=== PATIENT | male | born 1940 | race Hispanic/Latino ===

== ENCOUNTER 2017-09-22 06:44 | Day surgery (SDC) | payer MEDICARE ==
[2017-09-21 10:23] LABS: RED BLOOD CELL COUNT(AUTO) 3.83 MIL/uL (4.50-6.20); WHITE BLOOD COUNT (AUTO) 7.7 K/uL (4.8-10.8)
[2017-09-21 10:24] LABS: BASOPHILS % (AUTO) 0.8 % (0.0-5.0); EOSINOPHILS % (AUTO) 4.4 % (0.0-8.0); HEMATOCRIT 34.4 % (42-54); LYMPHOCYTES % (AUTO) 16.7 % (21.0-51.0); MEAN CORPUSCULAR HEMOGLOBIN 30.3 pg (27.0-33.0); MEAN CORPUSCULAR HGB CONC 33.7 g/dL (32.0-36.0); MEAN CORPUSCULAR VOLUME 89.8 fL (79-99); MONOCYTES % (AUTO) 8.6 % (3.0-13.0); NEUTROPHILS % (AUTO) 69.5 % (40.0-77.0); PLATELET COUNT (AUTO) 229 K/uL (130-400); RED CELL DISTRIBUTION WIDTH 13.3 % (11.0-15.5)
[2017-09-21 10:35] LABS: INR 0.95 (0.85-1.15); PARTIAL THROMBOPLASTIN TIME 25.8 SEC (26.3-35.5)
[2017-09-21 10:41] LABS: ALBUMIN 3.2 g/dL (3.5-5.0); BILIRUBIN,TOTAL 0.4 mg/dL (0.2-1.0); CREATININE 2.8 mg/dL (0.5-1.5); POTASSIUM 3.7 mmol/L (3.5-5.1); TOTAL PROTEIN, SERUM 7.5 g/dL (6.0-8.3)
[2017-09-21 10:47] VITALS: BP 114/58
[~2017-09-22] VITALS: Ht 161.3 cm; Wt 83.5 kg
[~2017-09-22 06:44] MED LIST: AMLO5TAB2 PO; HYDR12.54 PO; IRON1CAP32 PO; MIRA25TA PO; OXYB5TAB10 PO; PRAV40TA3 PO; TAMS0.4C32 PO
[2017-09-22 07:30] VITALS: BP 110/64
[2017-09-22] MEDS ORDERED: LIDOCAINE HCL 1% MDV 50ML VIAL ONE (07:47)
[2017-09-22] MEDS ORDERED: ISOVUE-300 100 ML VIAL IV ONE (07:47)
[2017-09-22] MEDS ORDERED: MORPHINE SULFATE 10 MG/ML 1ML SYG ONE (08:41)
[2017-09-22 09:20] VITALS: BP 133/53
[2017-09-22 09:35] VITALS: BP 114/61
[2017-09-22 09:50] VITALS: BP 121/61
[2017-09-22 10:05] VITALS: BP 120/62
[2017-09-22 10:40] VITALS: BP 122/60
[2017-11-24] MEDS ORDERED: LORA10TA7 PO (15:15)
[2017-11-24] MEDS ORDERED: ACET-66 PO (15:15)
[2017-11-24] MEDS ORDERED: FERR325T22 PO (15:15)
[2017-11-24] MEDS ORDERED: MONT10TA24 PO (15:15)
[2018-02-24] MEDS ORDERED: ACET-2743 PO (12:41)
[2018-02-24] MEDS ORDERED: LEVO250T59 PO (12:41)
[2018-02-24] MEDS ORDERED: RENAL CAPS PO (12:41)
== END 2017-09-22 10:50 | disposition home or self-care (01) ==
LOC: DAH 06:44
PROVIDERS: ATTEND Urology
DX: N13.30 Unspecified hydronephrosis (principal); E78.00 Pure hypercholesterolemia, unspecified; Z87.440 Personal history of urinary (tract) infections; Z85.46 Personal history of malignant neoplasm of prostate; Z82.49 Family history of ischemic heart disease and other diseases of the circulatory system
CPT/HCPCS: 36415; 50432; 80053; 85025; 85610; 85730; A4606; C1729 ×2; C1894; J1644; J2270; J3490; Q9967

== ENCOUNTER 2017-10-04 09:49 | Emergency (ER) | payer MEDICARE ==
[2017-10-04 10:16] LABS: BASOPHILS % (AUTO) 0.6 % (0.0-5.0); EOSINOPHILS % (AUTO) 3.3 % (0.0-8.0); HEMATOCRIT 35.3 % (42-54); LYMPHOCYTES % (AUTO) 13.6 % (21.0-51.0); MEAN CORPUSCULAR HEMOGLOBIN 29.8 pg (27.0-33.0); MEAN CORPUSCULAR HGB CONC 33.6 g/dL (32.0-36.0); MEAN CORPUSCULAR VOLUME 88.7 fL (79-99); MONOCYTES % (AUTO) 6.1 % (3.0-13.0); NEUTROPHILS % (AUTO) 76.4 % (40.0-77.0); PLATELET COUNT (AUTO) 368 K/uL (130-400); RED BLOOD CELL COUNT(AUTO) 3.98 MIL/uL (4.50-6.20); WHITE BLOOD COUNT (AUTO) 10.6 K/uL (4.8-10.8)
[2017-10-04 10:24] LABS: CREATININE 2.5 mg/dL (0.5-1.5); POTASSIUM 4.2 mmol/L (3.5-5.1)
[2017-10-04] MEDS ORDERED: SODIUM CHLORIDE 0.9% 1000ML 1,000 ML IV ONE (10:38)
[2017-11-24] MEDS ORDERED: MONT10TA24 PO (15:15)
[2017-11-24] MEDS ORDERED: ACET-66 PO (15:15)
[2017-11-24] MEDS ORDERED: LORA10TA7 PO (15:15)
[2017-11-24] MEDS ORDERED: FERR325T22 PO (15:15)
[2018-02-24] MEDS ORDERED: ACET-2743 PO (12:41)
[2018-02-24] MEDS ORDERED: RENAL CAPS PO (12:41)
[2018-02-24] MEDS ORDERED: LEVO250T59 PO (12:41)
== END 2017-10-04 12:37 | disposition home or self-care (01) ==
LOC: EDH 09:49
DX: N13.9 Obstructive and reflux uropathy, unspecified (principal); E86.0 Dehydration; R05 Cough; I10 Essential (primary) hypertension; Z93.6 Other artificial openings of urinary tract status
CPT/HCPCS: 36415; 76770; 80048; 85025; 96360; 99285; J7030

== ENCOUNTER 2017-10-23 17:39 | Inpatient (IN) | payer MEDICARE ==
[~2017-10-23] VITALS: Ht 152.4 cm; Wt 85.3 kg
[2017-10-23] MEDS ORDERED: ONDANSETRON HCL 4 MG/2 ML VIAL ONE (18:24)
[2017-10-23] MEDS ORDERED: ACETAMINOPHEN 325 MG TAB ONE (18:24)
[2017-10-23] MEDS ORDERED: IPRATROPIUM/ALBUTEROL SULFATE 3 ML SOLUTION IH ONE (18:25)
[2017-10-23 18:43] LABS: CREATININE 3.2 mg/dL (0.5-1.5); POTASSIUM 4.9 mmol/L (3.5-5.1)
[2017-10-23 18:48] LABS: ALBUMIN 2.7 g/dL (3.5-5.0); BILIRUBIN,TOTAL 0.4 mg/dL (0.2-1.0); TOTAL PROTEIN, SERUM 7.4 g/dL (6.0-8.3)
[2017-10-23 18:56] LABS: BASOPHILS % (AUTO) 0.3 % (0.0-5.0); EOSINOPHILS % (AUTO) 0.7 % (0.0-8.0); HEMATOCRIT 28.2 % (42-54); LYMPHOCYTES % (AUTO) 14.1 % (21.0-51.0); MEAN CORPUSCULAR HGB CONC 35.4 g/dL (32.0-36.0); MEAN CORPUSCULAR VOLUME 87.5 fL (79-99); MONOCYTES % (AUTO) 10.6 % (3.0-13.0); NEUTROPHILS % (AUTO) 74.3 % (40.0-77.0); NUCLEATED RED BLOOD CELLS 0.1 % (0.0-0.19); PLATELET COUNT (AUTO) 207 K/uL (130-400); RED BLOOD CELL COUNT(AUTO) 3.22 MIL/uL (4.50-6.20); RED CELL DISTRIBUTION WIDTH 13.5 % (11.0-15.5); WHITE BLOOD COUNT (AUTO) 10.6 K/uL (4.8-10.8)
[2017-10-23 19:12] LABS: BILIRUBIN,URINE Negative (NEGATIVE); COLOR,URINE Yellow (YELLOW); GLUCOSE, URINE (UA) Negative (NEGATIVE); KETONES,URINE Negative (NEGATIVE); LEUKOCYTE ESTERASE ,URINE Large (NEGATIVE); NITRATE,URINE Positive (NEGATIVE); OCCULT BLOOD,URINE Small (NEGATIVE); PH,URINE >=9.0 (5.0-8.0); PROTEIN,URINE Trace (NEGATIVE); UROBILINOGEN,URINE 0.2 mg/dL (0.2-1.0)
[2017-10-23 19:29] LABS: APPEARANCE,URINE SLIGHTLY CLOUDY (CLEAR)
[2017-10-23] MEDS ORDERED: CEFTRIAXONE SODIUM 1 GM ONE (19:40)
[2017-10-23 20:03] LABS: RBC,URINE 0-1 /HPF (0-1)
[2017-10-23 20:04] LABS: BACTERIA,URINE Few /HPF (None Seen)
[2017-10-23 20:05] LABS: SQUAMOUS EPITHELIAL CELL,UR Rare /LPF (0-2)
[2017-10-23 23:45] VITALS: BP 132/68
[2017-10-24] VITALS (7 sets, daily range): BP systolic 119–168; BP diastolic 55–97
[2017-10-24] MEDS ORDERED: SODIUM CHLORIDE 0.9% 1000ML 1,000 ML IV ONE (00:02)
[2017-10-24] MEDS ORDERED: PRAV40TA3 PO (00:33)
[2017-10-24] MEDS ORDERED: TAMS0.4C32 PO (00:33)
[2017-10-24] MEDS ORDERED: BENZ-51 PO (00:33)
[2017-10-24] MEDS ORDERED: AMLO5TAB2 PO (00:33)
[2017-10-24] MEDS ORDERED: MIRA25TA PO (00:33)
[2017-10-24] MEDS ORDERED: ACETAMINOPHEN 325 MG TAB ONE (01:14)
[2017-10-24] MEDS ORDERED: ONDANSETRON HCL 4 MG/2 ML VIAL IVP PRN (04:15)
[2017-10-24] MEDS ORDERED: SODIUM CHLORIDE 0.9% 1000ML 1,000 ML IV SCH (04:15)
[2017-10-24] MEDS ORDERED: LACTULOSE 20 GM/30 ML UDCUP PO PRN (08:45)
[2017-10-24] MEDS ORDERED: MAG HYDROX/AL HYDROX/SIMETH ES 30 ML SUSP UDCUP PO PRN (08:45)
[2017-10-24] MEDS ORDERED: IPRATROPIUM/ALBUTEROL SULFATE 3 ML SOLUTION IH PRN (09:15)
[2017-10-24 09:25] LABS: POTASSIUM 4.8 mmol/L (3.5-5.1)
[2017-10-24] MEDS: PANTOPRAZOLE SODIUM 40 MG TABLET.DR PO SCH (09:49)
[2017-10-24] MEDS: ENOXAPARIN SODIUM 30 MG/0.3 ML SQ SCH (09:51)
[2017-10-24] MEDS: CEFTRIAXONE SODIUM 1 GM IVP SCH ×2 (12:00→21:04)
[2017-10-24] MEDS: ACETAMINOPHEN 325 MG TAB PO PRN (18:04)
[2017-10-24] MEDS ORDERED: CEFTRIAXONE 1GM/D5W 50ML 50 ML IV SCH (21:00)
[2017-10-24] MEDS: TAMSULOSIN HCL 0.4 MG CAP.ER.24H PO SCH (21:04)
[2017-10-24] MEDS: SODIUM CHLORIDE 0.9% 1000ML 1,000 ML IV SCH ×2 (21:05→23:38)
[2017-10-25] VITALS (12 sets, daily range): BP systolic 128–149; BP diastolic 63–75
[2017-10-25 05:58] LABS: HEMATOCRIT 26.8 % (42-54); MEAN CORPUSCULAR HEMOGLOBIN 30.5 pg (27.0-33.0); MEAN CORPUSCULAR HGB CONC 34.2 g/dL (32.0-36.0); PLATELET COUNT (AUTO) 193 K/uL (130-400); RED BLOOD CELL COUNT(AUTO) 3.01 MIL/uL (4.50-6.20); RED CELL DISTRIBUTION WIDTH 13.2 % (11.0-15.5); WHITE BLOOD COUNT (AUTO) 6.1 K/uL (4.8-10.8)
[2017-10-25 06:19] LABS: BAND NEUTROPHILS % (MANUAL) 6 % (0-2); EOSINOPHILS % (MANUAL) 2 % (1-6); LYMPHOCYTES % (MANUAL) 15 % (22-44); MONOCYTES % (MANUAL) 6 % (2-9); SEGMENTED NEUTROPHILS % 71 % (40-70)
[2017-10-25 06:20] LABS: CREATININE 2.8 mg/dL (0.5-1.5); MAGNESIUM 2.1 mg/dL (1.80-2.40); MAN.DIFF COMMENT-IMPRESSION MANUAL DIFFERENTIAL; PHOSPHORUS 3.3 mg/dL (2.5-4.9); PLATELET MORPHOLOGY COMMENT ADEQUATE; POTASSIUM 4.8 mmol/L (3.5-5.1); URIC ACID 5.3 mg/dL (2.6-7.2)
[2017-10-25 06:39] LABS: % IRON SATURATION 14.7 % (30-44)
[2017-10-25 07:48] LABS: INR 1.02 (0.85-1.15); PARTIAL THROMBOPLASTIN TIME 29.4 SEC (26.3-35.5); PROTHROMBIN TIME 10.7 SEC (9.6-11.6)
[2017-10-25] MEDS: ENOXAPARIN SODIUM 30 MG/0.3 ML SQ SCH (09:00)
[2017-10-25] MEDS ORDERED: LIDOCAINE HCL 1% MDV 50ML VIAL ONE (09:22)
[2017-10-25] MEDS ORDERED: ISOVUE-300 100 ML VIAL IV ONE (09:56)
[2017-10-25] MEDS: FOLIC ACID/VITAMIN B COMP W-C 1 MG CAPSULE PO SCH (12:57)
[2017-10-25] MEDS: PANTOPRAZOLE SODIUM 40 MG TABLET.DR PO SCH (12:57)
[2017-10-25] MEDS: TAMSULOSIN HCL 0.4 MG CAP.ER.24H PO SCH (19:55)
[2017-10-25] MEDS: CEFTRIAXONE SODIUM 1 GM IVP SCH (22:27)
[2017-10-25] MEDS: ACETAMINOPHEN 325 MG TAB PO PRN (22:36)
[2017-10-26 03:00] VITALS: BP 134/68
[2017-10-26] MEDS: SODIUM CHLORIDE 0.9% 1000ML 1,000 ML IV SCH (03:38)
[2017-10-26 05:51] LABS: HEMATOCRIT 26.9 % (42-54); MEAN CORPUSCULAR HEMOGLOBIN 30.9 pg (27.0-33.0); MEAN CORPUSCULAR HGB CONC 35.1 g/dL (32.0-36.0); MEAN CORPUSCULAR VOLUME 88.2 fL (79-99); PLATELET COUNT (AUTO) 233 K/uL (130-400); RED BLOOD CELL COUNT(AUTO) 3.05 MIL/uL (4.50-6.20); RED CELL DISTRIBUTION WIDTH 13.5 % (11.0-15.5); WHITE BLOOD COUNT (AUTO) 6.8 K/uL (4.8-10.8)
[2017-10-26 06:09] LABS: CREATININE 2.6 mg/dL (0.5-1.5); POTASSIUM 4.1 mmol/L (3.5-5.1)
[2017-10-26 07:00] VITALS: BP 141/71
[2017-10-26] MEDS ORDERED: IRON SUCROSE COMPLEX 100 MG in SODIUM CHLORIDE 0.9% 50 ML IV SCH (09:00)
[2017-10-26] MEDS ORDERED: BENZ-17 PO (09:21)
[2017-10-26] MEDS ORDERED: CEPH500C2 PO (09:21)
[2017-10-26] MEDS ORDERED: Folic Acid/Vitamin B Comp W-C PO (09:21)
[2017-10-26 11:00] VITALS: BP_SYST 145; BP_SYST 93; BP_DIAS 64; BP_DIAS 67
[2017-10-26] MEDS: PANTOPRAZOLE SODIUM 40 MG TABLET.DR PO SCH (11:01)
[2017-10-26] MEDS: ENOXAPARIN SODIUM 30 MG/0.3 ML SQ SCH (11:01)
[2017-10-26] MEDS: FOLIC ACID/VITAMIN B COMP W-C 1 MG CAPSULE PO SCH (11:01)
[2017-10-26] MEDS ORDERED: CEPHALEXIN 500 MG CAPSULE PO SCH (14:00)
[2017-11-24] MEDS ORDERED: MONT10TA24 PO (15:15)
[2017-11-24] MEDS ORDERED: FERR325T22 PO (15:15)
[2017-11-24] MEDS ORDERED: LORA10TA7 PO (15:15)
[2017-11-24] MEDS ORDERED: ACET-66 PO (15:15)
[2018-02-24] MEDS ORDERED: ACET-2743 PO (12:41)
[2018-02-24] MEDS ORDERED: RENAL CAPS PO (12:41)
[2018-02-24] MEDS ORDERED: LEVO250T59 PO (12:41)
== END 2017-10-26 13:15 | disposition home or self-care (01) | DRG 699 ==
LOC: EDH 17:39 → EDHIP 20:35 → OBSVTOIN 20:35 → 3CH 22:34
PROVIDERS: ADMIT Internal Medicine; ATTEND Internal Medicine
PROC: 0T25X0Z Change Drainage Device in Kidney, External Approach (ICD-10-PCS; principal; 2017-10-25)
DX: T83.89XA Other specified complication of genitourinary prosthetic devices, implants and grafts, initial encounter (principal); N17.9 Acute kidney failure, unspecified; G62.9 Polyneuropathy, unspecified; N13.6 Pyonephrosis; D71 Functional disorders of polymorphonuclear neutrophils; K31.84 Gastroparesis; B96.4 Proteus (mirabilis) (morganii) as the cause of diseases classified elsewhere; N13.8 Other obstructive and reflux uropathy; N30.40 Irradiation cystitis without hematuria; Y84.6 Urinary catheterization as the cause of abnormal reaction of the patient, or of later complication, without mention of misadventure at the time of the procedure; Y92.89 Other specified places as the place of occurrence of the external cause; Y73.8 Miscellaneous gastroenterology and urology devices associated with adverse incidents, not elsewhere classified; D64.9 Anemia, unspecified; E78.5 Hyperlipidemia, unspecified; N18.9 Chronic kidney disease, unspecified; E87.6 Hypokalemia; I12.9 Hypertensive chronic kidney disease with stage 1 through stage 4 chronic kidney disease, or unspecified chronic kidney disease; K21.9 Gastro-esophageal reflux disease without esophagitis; K80.20 Calculus of gallbladder without cholecystitis without obstruction; M19.90 Unspecified osteoarthritis, unspecified site; N40.1 Benign prostatic hyperplasia with lower urinary tract symptoms; R32 Unspecified urinary incontinence; Y84.2 Radiological procedure and radiotherapy as the cause of abnormal reaction of the patient, or of later complication, without mention of misadventure at the time of the procedure; Z93.6 Other artificial openings of urinary tract status; Z92.3 Personal history of irradiation; Z87.891 Personal history of nicotine dependence; Z85.46 Personal history of malignant neoplasm of prostate; Z83.3 Family history of diabetes mellitus; Z82.5 Family history of asthma and other chronic lower respiratory diseases; Z82.49 Family history of ischemic heart disease and other diseases of the circulatory system; Z82.3 Family history of stroke; Z82.0 Family history of epilepsy and other diseases of the nervous system
CPT/HCPCS: 36415; 50435; 71045; 71250; 74176; 80048; 80053; 81001; 82728; 83540; 83550; 83735; 84100; 84550; 85025; 85027; 85610; 85730; 87040; 87088; 87186; 87804; 87880; 94640; 94664; A4218; C1729; C1769; J0696; J1650; J1756; J2405; J3490; J7030; Q9967

== ENCOUNTER → 2017-11-23 | Outpatient (CLI) | payer MEDICARE ==
[~2017-11-23] MED LIST changes: +ACET-2743 PO; +ACET-66 PO; -AMLO5TAB2 PO; +BENZ-17 PO; +BENZ-51 PO; +CEPH500C2 PO; +FERR325T22 PO; +Folic Acid/Vitamin B Comp W-C PO; -HYDR12.54 PO; -IRON1CAP32 PO; +LEVO250T59 PO; +LORA10TA7 PO; -MIRA25TA PO; +MONT10TA24 PO; -OXYB5TAB10 PO; +RENAL CAPS PO; -TAMS0.4C32 PO
== END ==
LOC: RAH 09:29
PROVIDERS: ATTEND Internal Medicine
DX: M25.561 Pain in right knee (principal)
CPT/HCPCS: 73562

== ENCOUNTER 2017-11-25 10:36 | Day surgery (SDC) | payer MEDICARE ==
[2017-11-24 15:02] VITALS: BP 145/65
[2017-11-24 15:08] LABS: BASOPHILS % (AUTO) 0.5 % (0.0-5.0); EOSINOPHILS % (AUTO) 3.4 % (0.0-8.0); HEMATOCRIT 31.5 % (42-54); LYMPHOCYTES % (AUTO) 18.4 % (21.0-51.0); MEAN CORPUSCULAR HEMOGLOBIN 29.7 pg (27.0-33.0); MEAN CORPUSCULAR HGB CONC 34.3 g/dL (32.0-36.0); MEAN CORPUSCULAR VOLUME 86.7 fL (79-99); MONOCYTES % (AUTO) 7.4 % (3.0-13.0); NEUTROPHILS % (AUTO) 70.3 % (40.0-77.0); PLATELET COUNT (AUTO) 189 K/uL (130-400); RED BLOOD CELL COUNT(AUTO) 3.63 MIL/uL (4.50-6.20); RED CELL DISTRIBUTION WIDTH 15.2 % (11.0-15.5); WHITE BLOOD COUNT (AUTO) 9.6 K/uL (4.8-10.8)
[2017-11-24 15:18] LABS: INR 0.95 (0.85-1.15)
[2017-11-24 15:21] LABS: BILIRUBIN,TOTAL 0.3 mg/dL (0.2-1.0); POTASSIUM 4.3 mmol/L (3.5-5.1); TOTAL PROTEIN, SERUM 7.2 g/dL (6.0-8.3)
[~2017-11-25] VITALS: Ht 165.1 cm; Wt 83.5 kg
[~2017-11-25 10:36] MED LIST changes: -ACET-2743 PO; -BENZ-17 PO; -BENZ-51 PO; -CEPH500C2 PO; -LEVO250T59 PO; -RENAL CAPS PO
[2017-11-25 10:55] VITALS: BP 125/62
[2017-11-25] MEDS ORDERED: SODIUM CHLORIDE 0.9% 1000ML 1,000 ML IV ONE (11:18)
[2017-11-25] MEDS ORDERED: ISOVUE-300 100 ML VIAL IV ONE (12:50)
[2017-11-25] MEDS ORDERED: LIDOCAINE HCL 1% MDV 50ML VIAL ONE (12:50)
[2017-11-25 13:45] VITALS: BP 160/66
[2018-02-24] MEDS ORDERED: LEVO250T59 PO (12:41)
[2018-02-24] MEDS ORDERED: RENAL CAPS PO (12:41)
[2018-02-24] MEDS ORDERED: ACET-2743 PO (12:41)
== END 2017-11-25 14:15 | disposition home or self-care (01) ==
LOC: DAH 10:36
PROVIDERS: ATTEND Urology
DX: Z43.6 Encounter for attention to other artificial openings of urinary tract (principal); N13.30 Unspecified hydronephrosis; Z85.46 Personal history of malignant neoplasm of prostate; N18.9 Chronic kidney disease, unspecified
CPT/HCPCS: 36415; 50435; 80053; 85025; 85610; 85730; A4606; C1729 ×2; C1769 ×2; J3490; J7030; Q9967

== ENCOUNTER 2017-11-26 09:41 | Emergency (ER) | payer MEDICARE ==
[2017-11-26 10:19] LABS: BASOPHILS % (AUTO) 0.2 % (0.0-5.0); EOSINOPHILS % (AUTO) 0.3 % (0.0-8.0); HEMATOCRIT 34.8 % (42-54); LYMPHOCYTES % (AUTO) 8.1 % (21.0-51.0); MEAN CORPUSCULAR HEMOGLOBIN 29.9 pg (27.0-33.0); MEAN CORPUSCULAR HGB CONC 34.3 g/dL (32.0-36.0); MEAN CORPUSCULAR VOLUME 87.1 fL (79-99); MONOCYTES % (AUTO) 6.9 % (3.0-13.0); NEUTROPHILS % (AUTO) 84.5 % (40.0-77.0); PLATELET COUNT (AUTO) 194 K/uL (130-400); RED BLOOD CELL COUNT(AUTO) 3.99 MIL/uL (4.50-6.20); WHITE BLOOD COUNT (AUTO) 15.3 K/uL (4.8-10.8)
[2017-11-26 10:20] LABS: APPEARANCE,URINE Turbid (CLEAR); BILIRUBIN,URINE Negative (NEGATIVE); COLOR,URINE Yellow (YELLOW); GLUCOSE, URINE (UA) Negative (NEGATIVE); KETONES,URINE Negative (NEGATIVE); LEUKOCYTE ESTERASE ,URINE Large (NEGATIVE); NITRATE,URINE Negative (NEGATIVE); OCCULT BLOOD,URINE Large (NEGATIVE); PROTEIN,URINE 300 (NEGATIVE)
[2017-11-26 10:29] LABS: BACTERIA,URINE Few /HPF (None Seen); WBC,URINE TNTC /HPF (0-1)
[2017-11-26 10:30] LABS: SQUAMOUS EPITHELIAL CELL,UR Rare /LPF (0-2)
[2017-11-26 10:31] LABS: CREATININE 2.9 mg/dL (0.5-1.5); POTASSIUM 4.5 mmol/L (3.5-5.1)
[2017-11-26 10:32] LABS: INR 0.99 (0.85-1.15); PARTIAL THROMBOPLASTIN TIME 27.1 SEC (26.3-35.5); PROTHROMBIN TIME 10.4 SEC (9.6-11.6)
[2017-11-26 10:33] LABS: BILIRUBIN,TOTAL 0.6 mg/dL (0.2-1.0); TOTAL PROTEIN, SERUM 7.8 g/dL (6.0-8.3)
[2017-11-26] MEDS ORDERED: LEVOFLOXACIN 500 MG TABLET ONE (11:06)
[2017-11-26] MEDS ORDERED: SODIUM CHLORIDE 0.9% 1000ML 1,000 ML IV ONE (11:06)
[2018-02-24] MEDS ORDERED: LEVO250T59 PO (12:41)
[2018-02-24] MEDS ORDERED: ACET-2743 PO (12:41)
[2018-02-24] MEDS ORDERED: RENAL CAPS PO (12:41)
== END 2017-11-26 12:36 | disposition home or self-care (01) ==
LOC: EDH 09:41
DX: T83.092A Other mechanical complication of nephrostomy catheter, initial encounter (principal); N39.0 Urinary tract infection, site not specified; E78.5 Hyperlipidemia, unspecified; I10 Essential (primary) hypertension; R79.1 Abnormal coagulation profile; Z85.46 Personal history of malignant neoplasm of prostate; Y83.8 Other surgical procedures as the cause of abnormal reaction of the patient, or of later complication, without mention of misadventure at the time of the procedure; Y92.89 Other specified places as the place of occurrence of the external cause
CPT/HCPCS: 36415; 74176; 80053; 81001; 82150; 83690; 85025; 85610; 85730; 87088; 96360; 99285; J7030

== ENCOUNTER 2018-01-19 07:40 | Day surgery (SDC) | payer MEDICARE ==
[2018-01-17 11:44] VITALS: BP 129/65
[2018-01-17 11:52] LABS: BASOPHILS % (AUTO) 0.7 % (0.0-5.0); EOSINOPHILS % (AUTO) 4.1 % (0.0-8.0); HEMATOCRIT 35.6 % (42-54); LYMPHOCYTES % (AUTO) 26.4 % (21.0-51.0); MEAN CORPUSCULAR HEMOGLOBIN 30.2 pg (27.0-33.0); MEAN CORPUSCULAR HGB CONC 34.6 g/dL (32.0-36.0); MEAN CORPUSCULAR VOLUME 87.2 fL (79-99); MONOCYTES % (AUTO) 7.5 % (3.0-13.0); NEUTROPHILS % (AUTO) 61.3 % (40.0-77.0); PLATELET COUNT (AUTO) 232 K/uL (130-400); RED BLOOD CELL COUNT(AUTO) 4.08 MIL/uL (4.50-6.20); RED CELL DISTRIBUTION WIDTH 15.6 % (11.0-15.5); WHITE BLOOD COUNT (AUTO) 6.7 K/uL (4.8-10.8)
[2018-01-17 12:07] LABS: ALBUMIN 3.3 g/dL (3.5-5.0); BILIRUBIN,TOTAL 0.3 mg/dL (0.2-1.0); CREATININE 2.2 mg/dL (0.5-1.5); POTASSIUM 4.4 mmol/L (3.5-5.1); TOTAL PROTEIN, SERUM 7.6 g/dL (6.0-8.3)
[2018-01-17 12:10] LABS: INR 0.93 (0.85-1.15); PARTIAL THROMBOPLASTIN TIME 24.8 SEC (26.3-35.5); PROTHROMBIN TIME 9.8 SEC (9.6-11.6)
[2018-01-19] VITALS (8 sets, daily range): BP systolic 123–175; BP diastolic 66–110
[~2018-01-19] VITALS: Ht 165.1 cm; Wt 82.6 kg
[~2018-01-19 07:40] MED LIST changes: -ACET-66 PO; -LORA10TA7 PO; -MONT10TA24 PO
[2018-01-19] MEDS ORDERED: SODIUM CHLORIDE 0.9% 1000ML 1,000 ML IV ONE (09:27)
[2018-01-19] MEDS ORDERED: LIDOCAINE HCL 1% MDV 50ML VIAL ONE (10:22)
[2018-01-19] MEDS ORDERED: ISOVUE-300 100 ML VIAL IV ONE (10:22)
[2018-01-19] MEDS ORDERED: FENTANYL CITRATE PF 50 MCG/1 ML 2ML VIAL ONE (10:24)
[2018-02-24] MEDS ORDERED: ACET-2743 PO (12:41)
[2018-02-24] MEDS ORDERED: RENAL CAPS PO (12:41)
[2018-02-24] MEDS ORDERED: LEVO250T59 PO (12:41)
== END 2018-01-19 13:40 | disposition home or self-care (01) ==
LOC: DAH 07:40
PROVIDERS: ATTEND Urology
DX: N99.522 Malfunction of incontinent external stoma of urinary tract (principal); K29.70 Gastritis, unspecified, without bleeding; E78.00 Pure hypercholesterolemia, unspecified; Z79.899 Other long term (current) drug therapy; Z98.890 Other specified postprocedural states
CPT/HCPCS: 36415; 50435; 80053; 85025; 85610; 85730; C1769; J3010; J3490; J7030; Q9967

== ENCOUNTER 2018-02-17 18:46 | Emergency (ER) | payer MEDICARE ==
[2018-02-17] MEDS ORDERED: ONDANSETRON HCL MDV 20ML 2 MG/ML VIAL ONE (19:20)
[2018-02-17 19:29] LABS: BASOPHILS % (AUTO) 0.3 % (0.0-5.0); EOSINOPHILS % (AUTO) 1.5 % (0.0-8.0); HEMATOCRIT 34.5 % (42-54); LYMPHOCYTES % (AUTO) 8.3 % (21.0-51.0); MEAN CORPUSCULAR HEMOGLOBIN 30.9 pg (27.0-33.0); MEAN CORPUSCULAR HGB CONC 35.5 g/dL (32.0-36.0); MEAN CORPUSCULAR VOLUME 86.9 fL (79-99); MONOCYTES % (AUTO) 8.3 % (3.0-13.0); NEUTROPHILS % (AUTO) 81.6 % (40.0-77.0); PLATELET COUNT (AUTO) 191 K/uL (130-400); RED BLOOD CELL COUNT(AUTO) 3.96 MIL/uL (4.50-6.20); RED CELL DISTRIBUTION WIDTH 14.7 % (11.0-15.5); WHITE BLOOD COUNT (AUTO) 11.6 K/uL (4.8-10.8)
[2018-02-17 19:36] LABS: CARBON DIOXIDE 26 mmol/L (21-32); CHLORIDE 104 mmol/L (101-111); CREATININE 2.5 mg/dL (0.5-1.5); GLOMERULAR FILTR. RATE CALC 27 mL/min (>60); GLUCOSE,RANDOM 120 mg/dL (70-105); POTASSIUM 4.4 mmol/L (3.5-5.1); SODIUM SERUM 140 mmol/L (136-145); UREA NITROGEN, BLOOD 31 mg/dL (7-18)
[2018-02-17 19:41] LABS: APPEARANCE,URINE Clear (CLEAR); BILIRUBIN,URINE Negative (NEGATIVE); COLOR,URINE Yellow (YELLOW); GLUCOSE, URINE (UA) Negative (NEGATIVE); KETONES,URINE Negative (NEGATIVE); LEUKOCYTE ESTERASE ,URINE Large (NEGATIVE); NITRATE,URINE Positive (NEGATIVE); OCCULT BLOOD,URINE Nonhemolyzed Trace (NEGATIVE); PH,URINE 5.5 (5.0-8.0); PROTEIN,URINE POS 1+ (NEGATIVE); UROBILINOGEN,URINE 0.2 mg/dL (0.2-1.0)
[2018-02-17 19:46] LABS: CREATINE KINASE MB 0.8 ng/mL (0.5-3.6)
[2018-02-17 19:49] LABS: BACTERIA,URINE Few /HPF (None Seen); WBC,URINE 26-50 /HPF (0-1)
[2018-02-17 19:52] LABS: ALANINE AMINOTRANSFERASE 24 U/L (12-78); ALBUMIN 3.3 g/dL (3.5-5.0); ASPARTATE AMINOTRANSFERASE 23 U/L (10-37); BILIRUBIN,TOTAL 0.5 mg/dL (0.2-1.0); CREATINE KINASE MB 0.7 ng/mL (0.5-3.6); CREATINE KINASE, TOTAL 67 U/L (21-232); MYOGLOBIN 95 ng/mL (10-92); TOTAL PROTEIN, SERUM 7.6 g/dL (6.0-8.3); TROPONIN I < 0.04 ng/mL (0.00-0.06)
[2018-02-17 19:55] LABS: INR 0.94 (0.85-1.15); PARTIAL THROMBOPLASTIN TIME 26.2 SEC (26.3-35.5); PROTHROMBIN TIME 9.9 SEC (9.6-11.6)
[2018-02-17] MEDS ORDERED: SODIUM CHLORIDE 0.9% 1000ML 1,000 ML IV ONE (20:40)
[2018-02-17] MEDS ORDERED: TRAMADOL HCL 50 MG TABLET ONE (20:40)
[2018-02-17] MEDS ORDERED: LEVOFLOXACIN 500 MG TABLET ONE (22:25)
[2018-02-24] MEDS ORDERED: ACET-2743 PO (12:41)
[2018-02-24] MEDS ORDERED: LEVO250T59 PO (12:41)
[2018-02-24] MEDS ORDERED: RENAL CAPS PO (12:41)
== END 2018-02-17 23:19 | disposition home or self-care (01) ==
LOC: EDH 18:46
DX: N39.0 Urinary tract infection, site not specified (principal); I10 Essential (primary) hypertension; N28.9 Disorder of kidney and ureter, unspecified; E78.5 Hyperlipidemia, unspecified; R79.1 Abnormal coagulation profile; Z93.6 Other artificial openings of urinary tract status; Z85.46 Personal history of malignant neoplasm of prostate; Z87.891 Personal history of nicotine dependence
CPT/HCPCS: 36415; 71045; 74176; 80053; 81001; 82550 ×2; 82553 ×2; 83605; 83874; 84484 ×2; 85025; 85610; 85730; 87040; 87088; 87186; 93005; 96374; 99285; J7030

== ENCOUNTER 2018-02-25 09:07 | Day surgery (SDC) | payer MEDICARE ==
[2018-02-24 12:08] LABS: BASOPHILS % (AUTO) 0.5 % (0.0-5.0); EOSINOPHILS % (AUTO) 2.7 % (0.0-8.0); HEMATOCRIT 35.2 % (42-54); LYMPHOCYTES % (AUTO) 15.5 % (21.0-51.0); MEAN CORPUSCULAR HGB CONC 34.3 g/dL (32.0-36.0); MEAN CORPUSCULAR VOLUME 87.6 fL (79-99); NEUTROPHILS % (AUTO) 75.3 % (40.0-77.0); PLATELET COUNT (AUTO) 245 K/uL (130-400); RED BLOOD CELL COUNT(AUTO) 4.02 MIL/uL (4.50-6.20); RED CELL DISTRIBUTION WIDTH 14.6 % (11.0-15.5); WHITE BLOOD COUNT (AUTO) 10.5 K/uL (4.8-10.8)
[2018-02-24 12:24] LABS: INR 0.96 (0.85-1.15); PARTIAL THROMBOPLASTIN TIME 26.2 SEC (26.3-35.5); PROTHROMBIN TIME 10.1 SEC (9.6-11.6)
[2018-02-24 12:26] LABS: ALBUMIN 3.1 g/dL (3.5-5.0); BILIRUBIN,TOTAL 0.2 mg/dL (0.2-1.0); CREATININE 2.3 mg/dL (0.5-1.5); POTASSIUM 4.6 mmol/L (3.5-5.1); TOTAL PROTEIN, SERUM 7.7 g/dL (6.0-8.3)
[2018-02-24 12:46] VITALS: BP 136/69
[~2018-02-25] VITALS: Ht 165.1 cm; Wt 82.1 kg
[~2018-02-25 09:07] MED LIST changes: +ACET-2743 PO; -Folic Acid/Vitamin B Comp W-C PO; +LEVO250T59 PO; +RENAL CAPS PO
[2018-02-25 09:38] VITALS: BP 120/67
[2018-02-25] MEDS ORDERED: SODIUM CHLORIDE 0.9% 1000ML 1,000 ML IV ONE (12:16)
[2018-02-25] MEDS ORDERED: ISOVUE-300 100 ML VIAL IV ONE (15:57)
[2018-02-25] MEDS ORDERED: LIDOCAINE HCL 1% MDV 50ML VIAL ONE (15:57)
[2018-02-25 17:05] VITALS: BP 170/138
[2018-02-25 17:20] VITALS: BP 140/75
== END 2018-02-25 17:54 | disposition home or self-care (01) ==
LOC: DAH 09:07
PROVIDERS: ATTEND Urology
DX: N32.81 Overactive bladder (principal); C61 Malignant neoplasm of prostate; Z79.899 Other long term (current) drug therapy; N40.1 Benign prostatic hyperplasia with lower urinary tract symptoms; R33.8 Other retention of urine; E78.00 Pure hypercholesterolemia, unspecified; N19 Unspecified kidney failure; Z68.33 Body mass index [BMI] 33.0-33.9, adult
CPT/HCPCS: 36415; 50435 ×2; 80053; 85025; 85610; 85730; A4606; C1729 ×2; C1769 ×2; J1644; J3490; J7030; Q9967

== ENCOUNTER 2018-07-29 07:20 | Day surgery (SDC) | payer MEDICARE ==
[2018-07-28 09:04] VITALS: BP 134/64
[2018-07-28 09:34] LABS: BASOPHILS % (AUTO) 0.5 % (0.0-5.0); EOSINOPHILS % (AUTO) 1.3 % (0.0-8.0); HEMATOCRIT 36.2 % (42-54); LYMPHOCYTES % (AUTO) 10.8 % (21.0-51.0); MEAN CORPUSCULAR HGB CONC 33.7 g/dL (32.0-36.0); MEAN CORPUSCULAR VOLUME 92.1 fL (79-99); MONOCYTES % (AUTO) 5.3 % (3.0-13.0); NEUTROPHILS % (AUTO) 82.1 % (40.0-77.0); PLATELET COUNT (AUTO) 254 K/uL (130-400); RED BLOOD CELL COUNT(AUTO) 3.93 MIL/uL (4.50-6.20); RED CELL DISTRIBUTION WIDTH 13.2 % (11.0-15.5); WHITE BLOOD COUNT (AUTO) 11.8 K/uL (4.8-10.8)
[2018-07-28 09:47] LABS: ALBUMIN 2.9 g/dL (3.5-5.0); BILIRUBIN,TOTAL 0.5 mg/dL (0.2-1.0); CREATININE 2.7 mg/dL (0.5-1.5); POTASSIUM 4.4 mmol/L (3.5-5.1); TOTAL PROTEIN, SERUM 7.7 g/dL (6.0-8.3)
[2018-07-28 09:48] LABS: INR 0.98 (0.85-1.15); PARTIAL THROMBOPLASTIN TIME 28.7 SEC (26.3-35.5); PROTHROMBIN TIME 10.3 SEC (9.6-11.6)
[~2018-07-29] VITALS: Ht 165.1 cm; Wt 81.9 kg
[~2018-07-29 07:20] MED LIST changes: -ACET-2743 PO; +CHOL100040 PO; +FOLI1CAP16 PO; -LEVO250T59 PO; -RENAL CAPS PO
[2018-07-29 08:55] VITALS: BP 124/65
[2018-07-29] MEDS ORDERED: SODIUM CHLORIDE 0.9% 1000ML 1,000 ML IV ONE (09:01)
[2018-07-29] MEDS ORDERED: LIDOCAINE HCL-MPF 2% 5ML VIAL ONE (09:23)
[2018-07-29] MEDS ORDERED: SODIUM BICARB 50MEQ 50ML VIAL ONE (09:23)
[2018-07-29] MEDS ORDERED: MIDAZOLAM HCL 1 MG/ML 2ML VIAL ONE (09:24)
[2018-07-29] MEDS ORDERED: FENTANYL CITRATE PF 50 MCG/1 ML 2ML VIAL ONE (09:24)
[2018-07-29] MEDS ORDERED: IODIXANOL 320 MG/ML 100 ML VIAL ONE (09:48)
[2018-07-29 11:08] VITALS: BP 140/71
[2018-07-29 11:22] VITALS: BP 141/66
[2018-07-29 11:40] VITALS: BP 141/89
[2018-07-29 11:58] VITALS: BP 135/81
== END 2018-07-29 12:20 | disposition home or self-care (01) ==
LOC: DAH 07:20
PROVIDERS: ATTEND Urology
DX: N13.30 Unspecified hydronephrosis (principal); N32.81 Overactive bladder; Z79.899 Other long term (current) drug therapy; Z68.33 Body mass index [BMI] 33.0-33.9, adult; E78.00 Pure hypercholesterolemia, unspecified; N40.1 Benign prostatic hyperplasia with lower urinary tract symptoms; Z82.49 Family history of ischemic heart disease and other diseases of the circulatory system; E66.9 Obesity, unspecified; Z98.890 Other specified postprocedural states
CPT/HCPCS: 36415; 50435 ×2; 80053; 85025; 85610; 85730; A4606; C1729 ×2; C1769; J1644; J2250; J3010; J3490 ×2; J7030; Q9967; 99156; 99157

== ENCOUNTER 2018-10-09 09:05 | Emergency (ER) | payer OTHER, MEDICARE ==
[2018-10-09 09:42] LABS: APPEARANCE,URINE Cloudy (CLEAR); BASOPHILS % (AUTO) 0.3 % (0.0-5.0); BILIRUBIN,URINE Negative (NEGATIVE); COLOR,URINE Yellow (YELLOW); EOSINOPHILS % (AUTO) 2.7 % (0.0-8.0); GLUCOSE, URINE (UA) Negative (NEGATIVE); KETONES,URINE Negative (NEGATIVE); LEUKOCYTE ESTERASE ,URINE Large (NEGATIVE); LYMPHOCYTES % (AUTO) 9.9 % (21.0-51.0); MEAN CORPUSCULAR HEMOGLOBIN 30.1 pg (27.0-33.0); MEAN CORPUSCULAR HGB CONC 32.9 g/dL (32.0-36.0); MEAN CORPUSCULAR VOLUME 91.5 fL (79-99); NEUTROPHILS % (AUTO) 80.1 % (40.0-77.0); NITRATE,URINE Positive (NEGATIVE); OCCULT BLOOD,URINE Nonhemolyzed Trace (NEGATIVE); PLATELET COUNT (AUTO) 194 K/uL (130-400); PROTEIN,URINE POS 1+ (NEGATIVE); RED BLOOD CELL COUNT(AUTO) 3.72 MIL/uL (4.50-6.20); RED CELL DISTRIBUTION WIDTH 14.8 % (11.0-15.5); UROBILINOGEN,URINE 0.2 mg/dL (0.2-1.0); WHITE BLOOD COUNT (AUTO) 7.7 K/uL (4.8-10.8)
[2018-10-09 09:49] LABS: BACTERIA,URINE Moderate /HPF (None Seen); RBC,URINE 0-1 /HPF (0-1); SQUAMOUS EPITHELIAL CELL,UR Rare /HPF (0-2)
[2018-10-09 10:05] LABS: CREATININE 2.7 mg/dL (0.5-1.5); POTASSIUM 3.9 mmol/L (3.5-5.1)
[2018-10-09] MEDS ORDERED: CEFTRIAXONE SODIUM 1 GM ONE (10:35)
[2018-10-13] MEDS ORDERED: B CO1CAP5 PO (11:18)
[2018-10-13] MEDS ORDERED: BENZ-51 PO (11:22)
[2018-10-13] MEDS ORDERED: FERROUS SULFATE PO (11:22)
[2018-10-13] MEDS ORDERED: CEPH500C2 PO (11:22)
[2018-10-13] MEDS ORDERED: ACET-2743 PO (11:22)
== END 2018-10-09 10:48 | disposition home or self-care (01) ==
LOC: EDH 09:05
DX: N39.0 Urinary tract infection, site not specified (principal); R05 Cough; I10 Essential (primary) hypertension; E78.5 Hyperlipidemia, unspecified; Z98.890 Other specified postprocedural states
CPT/HCPCS: 36415; 71045; 80048; 81001; 85025; 87804 ×2; 96374; 99284; J0696

== ENCOUNTER 2018-10-14 08:00 | Day surgery (SDC) | payer OTHER, MEDICARE ==
[2018-10-13 10:25] VITALS: BP 140/75
[2018-10-13 10:40] LABS: BASOPHILS % (AUTO) 0.6 % (0.0-5.0); EOSINOPHILS % (AUTO) 4.4 % (0.0-8.0); LYMPHOCYTES % (AUTO) 20.6 % (21.0-51.0); MEAN CORPUSCULAR HEMOGLOBIN 30.7 pg (27.0-33.0); MEAN CORPUSCULAR HGB CONC 33.6 g/dL (32.0-36.0); MEAN CORPUSCULAR VOLUME 91.4 fL (79-99); MONOCYTES % (AUTO) 6.3 % (3.0-13.0); NEUTROPHILS % (AUTO) 68.1 % (40.0-77.0); PLATELET COUNT (AUTO) 218 K/uL (130-400); RED BLOOD CELL COUNT(AUTO) 3.83 MIL/uL (4.50-6.20); RED CELL DISTRIBUTION WIDTH 14.5 % (11.0-15.5); WHITE BLOOD COUNT (AUTO) 6.8 K/uL (4.8-10.8)
[2018-10-13 10:48] LABS: CREATININE 2.6 mg/dL (0.5-1.5); POTASSIUM 4.4 mmol/L (3.5-5.1)
[~2018-10-14] VITALS: Ht 165.1 cm; Wt 83.1 kg
[~2018-10-14 08:00] MED LIST changes: +ACET-2743 PO; +B CO1CAP5 PO; +BENZ-51 PO; +CEPH500C2 PO; -FERR325T22 PO; +FERROUS SULFATE PO; -FOLI1CAP16 PO
[2018-10-14 08:12] VITALS: BP 142/68
[2018-10-14] MEDS ORDERED: SODIUM CHLORIDE 0.9% 1000ML 1,000 ML IV ONE (08:47)
[2018-10-14] MEDS ORDERED: IODIXANOL 320 MG/ML 100 ML VIAL ONE (09:38)
[2018-10-14] MEDS ORDERED: LIDOCAINE HCL 1% MDV 50ML VIAL ONE (09:38)
[2018-10-14] MEDS ORDERED: MIDAZOLAM HCL 1 MG/ML 2ML VIAL ONE (09:55)
[2018-10-14] MEDS ORDERED: FENTANYL CITRATE PF 50 MCG/1 ML 2ML VIAL ONE (09:55)
[2018-10-14 10:30] VITALS: BP 136/87
[2018-10-14 10:45] VITALS: BP 142/76
[2018-10-14 11:00] VITALS: BP 134/75
[2018-10-14 11:15] VITALS: BP 140/42
== END 2018-10-14 11:25 | disposition home or self-care (01) ==
LOC: DAH 08:00
PROVIDERS: ATTEND Urology
DX: N32.81 Overactive bladder (principal); N13.1 Hydronephrosis with ureteral stricture, not elsewhere classified; Z85.46 Personal history of malignant neoplasm of prostate; Z79.899 Other long term (current) drug therapy; Z98.890 Other specified postprocedural states; Z82.49 Family history of ischemic heart disease and other diseases of the circulatory system; N40.1 Benign prostatic hyperplasia with lower urinary tract symptoms; R35.1 Nocturia; E66.9 Obesity, unspecified
CPT/HCPCS: 36415; 50435 ×2; 80048; 85025; 93005; A4606; C1729 ×2; C1769; J1644; J2250; J3010; J3490; J7030; Q9967; 99156; 99157

== ENCOUNTER 2019-01-04 10:29 | Day surgery (SDC) | payer OTHER, MEDICARE ==
[2019-01-02 09:30] VITALS: BP 136/64
[2019-01-02 09:42] LABS: BASOPHILS % (AUTO) 0.9 % (0.0-5.0); EOSINOPHILS % (AUTO) 3.9 % (0.0-8.0); HEMATOCRIT 35.9 % (42-54); LYMPHOCYTES % (AUTO) 21.5 % (21.0-51.0); MEAN CORPUSCULAR HEMOGLOBIN 31.1 pg (27.0-33.0); MEAN CORPUSCULAR HGB CONC 33.6 g/dL (32.0-36.0); MEAN CORPUSCULAR VOLUME 92.8 fL (79-99); MONOCYTES % (AUTO) 6.7 % (3.0-13.0); PLATELET COUNT (AUTO) 210 K/uL (130-400); RED BLOOD CELL COUNT(AUTO) 3.87 MIL/uL (4.50-6.20); RED CELL DISTRIBUTION WIDTH 14.3 % (11.0-15.5); WHITE BLOOD COUNT (AUTO) 6.1 K/uL (4.8-10.8)
[2019-01-02 10:02] LABS: ALBUMIN 3.2 g/dL (3.5-5.0); BILIRUBIN,TOTAL 0.3 mg/dL (0.2-1.0); CREATININE 2.8 mg/dL (0.5-1.5); POTASSIUM 4.5 mmol/L (3.5-5.1); TOTAL PROTEIN, SERUM 7.3 g/dL (6.0-8.3)
[2019-01-02 10:04] LABS: INR 0.95 (0.85-1.15); PARTIAL THROMBOPLASTIN TIME 26.6 SEC (26.3-35.5)
[~2019-01-04] VITALS: Ht 162.6 cm; Wt 84.4 kg
[~2019-01-04 10:29] MED LIST changes: -BENZ-51 PO; -CEPH500C2 PO; -CHOL100040 PO; +CLIN300C9 PO; -FERROUS SULFATE PO; +FERS325 PO
[2019-01-04] MEDS ORDERED: SODIUM CHLORIDE 0.9% 1000ML 1,000 ML IV ONE (10:48)
[2019-01-04 10:49] VITALS: BP 132/66
--- NOTE | 2019-01-04 12:41 | NUR ---
PATIENT ASKING IF HE IS NEXT FOR PROCEDURE, IF NOT HE WILL LEAVE. PATIENT WAS GIVEN AN UPDATE THAT PROCEDURE MAY GO AT [phone]. NOTIFIED PATIENT AND FAMILY. PER PATIENT HE WILL WAIT FOR PROCEDURE.
[2019-01-04] MEDS ORDERED: LIDOCAINE HCL 1% MDV 50ML VIAL ONE (14:31)
[2019-01-04] MEDS ORDERED: IODIXANOL 320 MG/ML 100 ML VIAL ONE (14:31)
[2019-01-04] MEDS ORDERED: SODIUM BICARB 50MEQ 50ML VIAL ONE (14:54)
[2019-01-04] MEDS ORDERED: FENTANYL CITRATE PF 50 MCG/1 ML 2ML VIAL ONE (15:15)
[2019-01-04] MEDS ORDERED: MIDAZOLAM HCL 1 MG/ML 2ML VIAL ONE (15:15)
[2019-01-04 15:45] VITALS: BP 130/69
--- NOTE | 2019-01-04 15:45 | NUR ---
PATIENT RETUNED FROM [employer] NOZZLE WORKER IN NO DISTRESS. BILATERAL NEPHROSTOMY TUBE X2 FR 10 TO LOWER BACK, DRESSING IS CLEAN AND DRY. FAMILY AT HIS SIDE.
[2019-01-04 16:00] VITALS: BP 140/70
[2019-01-04 16:17] VITALS: BP 134/68
[2019-01-04 16:30] VITALS: BP 132/68
--- NOTE | 2019-01-04 16:33 | NUR ---
PATIENT ASSISTED UP TO CHAIR TO CHANGE, BILATERAL BACK NEPHROSTOMY TUBE SITE AR E CLEAN AND DRY. PATIENT DENIES ANY PAIN AT SITE. DRAIANGE TO BILATERAL BAGS IS CLEAR YELLOW
== END 2019-01-04 16:54 | disposition home or self-care (01) ==
LOC: DAH 10:29
PROVIDERS: ATTEND Urology
DX: N32.81 Overactive bladder (principal); Z98.890 Other specified postprocedural states; Z79.899 Other long term (current) drug therapy; Z82.49 Family history of ischemic heart disease and other diseases of the circulatory system; E78.00 Pure hypercholesterolemia, unspecified; N18.9 Chronic kidney disease, unspecified; K29.70 Gastritis, unspecified, without bleeding; N40.1 Benign prostatic hyperplasia with lower urinary tract symptoms
CPT/HCPCS: 36415; 50435 ×2; 80053; 85025; 85610; 85730; A4606; C1729 ×2; C1769; J1644; J2250; J3010; J3490 ×2; J7030; Q9967; 93005; 99156

== ENCOUNTER → 2019-02-20 | Outpatient (CLI) | payer OTHER, MEDICARE ==
[2019-02-20 10:56] LABS: CREATININE 3.1 mg/dL (0.5-1.5); POTASSIUM 4.5 mmol/L (3.5-5.1)
== END | disposition home or self-care (01) ==
LOC: LAB 09:43
PROVIDERS: ATTEND Internal Medicine
DX: N13.39 Other hydronephrosis (principal)
CPT/HCPCS: 36415; 80048

== ENCOUNTER → 2019-02-23 | Outpatient (CLI) | payer OTHER, MEDICARE ==
[~2019-02-23] MED LIST changes: +FUROSEMIDE 10 MG/ML 4ML VIAL ONE
== END | disposition home or self-care (01) ==
LOC: RAH 14:11
PROVIDERS: ATTEND Urology
DX: N13.39 Other hydronephrosis (principal); Z93.6 Other artificial openings of urinary tract status
CPT/HCPCS: 78708; A9562; J1940

== ENCOUNTER → 2019-03-03 | Outpatient (CLI) | payer OTHER, MEDICARE ==
[~2019-03-03] MED LIST changes: -FUROSEMIDE 10 MG/ML 4ML VIAL ONE
== END | disposition home or self-care (01) ==
LOC: RAH 08:05
PROVIDERS: ATTEND Urology
DX: N13.39 Other hydronephrosis (principal); Z93.6 Other artificial openings of urinary tract status
CPT/HCPCS: 74176

== ENCOUNTER 2019-04-14 07:16 | Day surgery (SDC) | payer MEDICARE ==
[2019-04-12 12:51] VITALS: BP 131/64
[2019-04-12 12:55] LABS: BASOPHILS % (AUTO) 0.3 % (0.0-5.0); EOSINOPHILS % (AUTO) 0.3 % (0.0-8.0); HEMATOCRIT 32.5 % (42-54); LYMPHOCYTES % (AUTO) 10.7 % (21.0-51.0); MEAN CORPUSCULAR HEMOGLOBIN 31.4 pg (27.0-33.0); MEAN CORPUSCULAR HGB CONC 33.3 g/dL (32.0-36.0); MEAN CORPUSCULAR VOLUME 94.3 fL (79-99); MONOCYTES % (AUTO) 6.4 % (3.0-13.0); NEUTROPHILS % (AUTO) 82.3 % (40.0-77.0); PLATELET COUNT (AUTO) 214 K/uL (130-400); RED BLOOD CELL COUNT(AUTO) 3.45 MIL/uL (4.50-6.20); RED CELL DISTRIBUTION WIDTH 14.5 % (11.0-15.5); WHITE BLOOD COUNT (AUTO) 10.8 K/uL (4.8-10.8)
[2019-04-12 13:08] LABS: INR 0.95 (0.85-1.15); PARTIAL THROMBOPLASTIN TIME 27.3 SEC (26.3-35.5)
[2019-04-12 13:09] LABS: CREATININE 3.4 mg/dL (0.5-1.5)
--- NOTE | 2019-04-13 15:45 | NUR ---
labs abnormal labs reported to dr. haque. message left with [facility], labs faxed per there request
[~2019-04-14] VITALS: Ht 165.1 cm; Wt 81.6 kg
[2019-04-14 07:30] VITALS: BP 140/75
[2019-04-14] MEDS ORDERED: SODIUM CHLORIDE 0.9% 1000ML 1,000 ML IV ONE (07:48)
[2019-04-14] MEDS ORDERED: IOHEXOL-350 50ML VIAL IV ONE (08:39)
[2019-04-14] MEDS ORDERED: LIDOCAINE HCL 1% MDV 50ML VIAL ONE (08:39)
--- NOTE | 2019-04-14 09:30 | NUR ---
RECEIVE PT RECEIVED FROM WATCH ADJUSTER VIA BED AWAKE ALERT ORIENTED X3. PT STABLE. STATES HE HAS A LITTLE PAIN TO THE PUNCTURE SITES, BILATERAL NEPHROSTOMY TUBE, STATES HE WILL TAKE HIS TYLENOL AT HOME. PT REPOSITIONED COMFORTABLY. BILATERAL NEPHROSTOMY TUBES IN PLACE DRAINING CLEAR YELLOW URINE. GAUZE, OPSITE DRESSING TO BOTH SIDES OF LOWER BACK DRY AND INTACT, NO OOZING NOTED. SITES SOFT,NO HEMATOMA NOTED. WILL CONTINUE TO MONITOR PT. AT BEDSIDE.
[2019-04-14 09:31] VITALS: BP 167/61
[2019-04-14 09:44] VITALS: BP 170/73
[2019-04-14 09:58] VITALS: BP 163/65
--- NOTE | 2019-04-14 10:17 | NUR ---
DISCHARGE PT DISCHARGED VIA WHEELCHAIR WITH . PT STABLE. NO COMPLAINTS MADE. TOLERATED ORAL FLUIDS WELL. BILATERAL NEPHROSTOMY TUBES REMAINED INTACT, LEFT DRAINING CLEAR YELLOW URINE, RIGHT NONE. DRESSINGS REMAIN DRY AND INTACT, O OOZING NOTED. DISCHARGE INSTRUCTIONS GIVEN TO AND PT. VERBALIZED UNDERSTANDING. /PT WILL CALL DR. MCDONALD'S OFFICE TO CLARIFY REGARDING IR ORDER SUTURE REMOVAL IN 14 DAYS.
== END 2019-04-14 10:17 | disposition home or self-care (01) ==
LOC: DAH 07:16
PROVIDERS: ATTEND Urology
DX: Z43.6 Encounter for attention to other artificial openings of urinary tract (principal); E78.00 Pure hypercholesterolemia, unspecified; Z79.2 Long term (current) use of antibiotics; Z79.899 Other long term (current) drug therapy; Z87.891 Personal history of nicotine dependence; Z85.46 Personal history of malignant neoplasm of prostate; Z82.49 Family history of ischemic heart disease and other diseases of the circulatory system; Z79.01 Long term (current) use of anticoagulants
CPT/HCPCS: 36415; 50435 ×2; 80048; 85025; 85610; 85730; A4606; C1729 ×2; C1769 ×2; J1644; J3490; J7030; Q9967

== ENCOUNTER 2019-04-24 15:27 | Day surgery (SDC) | payer MEDICARE ==
[~2019-04-24] VITALS: Ht 165.1 cm; Wt 81.6 kg
[2019-04-24 15:45] VITALS: BP 157/77
--- NOTE | 2019-04-24 15:45 | NUR ---
ASSESS PATIENT HAS BILATERAL NEPHROSTOMY TUBES IN PLACE, ENTRY SITE NOTED WITH NO REDNESS , DRAINAGE , OR SWELLING. BOTH TUBES DRAINING YELLOW URINE. RIGHT SITE TUBE ENTRY NOTED WITH NO SURE. LEFT TUBE ENTRY SITE NOTED WITH SUTURE ATTACHED TO TUBE. BOTH TUBES WHERE NOT SECURED. PT SCHEDULED FOR BILATERAL NEPHROSTOMY TUBES EVALUATION
--- NOTE | 2019-04-24 16:09 | NUR ---
PROCEDURE PT TAKEN TO INFORMATION SECURITY SYSTEMS INSTRUCTOR FOR PROCEDURE VIA BED, NO DISTRESS NOTED , SPOUSE AT BEDSIDE
[2019-04-24] MEDS ORDERED: LIDOCAINE HCL 1% MDV 50ML VIAL ONE (16:18)
[2019-04-24] MEDS ORDERED: IODIXANOL 320 MG/ML 100 ML VIAL ONE (16:18)
[2019-04-24 16:55] VITALS: BP 132/77
--- NOTE | 2019-04-24 16:55 | NUR ---
POST RECEIVED PT FROM INFORMATICS EDUCATOR, S/P BILATERAL NEPHROSTOMY TUBE CHECKED, NO EXCHANGED DONE PERCUSTAY DRESSING TO BILATERAL TUBES DRAINING CLEAR YELLOW URINE TO GRAVITY. PT STABLE, VS STABLE DENIES ANY PAIN OR DISCOMFORTS
[2019-04-24 17:10] VITALS: BP 133/74
--- NOTE | 2019-04-24 17:12 | NUR ---
DC PT DC HOME VIA WC, NO DISTRESS NOTED. ACCOMPANIED BY SPOUSE. BILATERAL NEPHROSTOMY TUBE IN PLACE WITH PERCUSTAY DRESSING IN PLACE. NO PIV NOTED. PT DENIES ANY PAIN OR DISCOMFORTS
== END 2019-04-24 17:12 | disposition home or self-care (01) ==
LOC: DAH 15:27
PROVIDERS: ATTEND Urology
DX: N13.39 Other hydronephrosis (principal); E78.00 Pure hypercholesterolemia, unspecified; Z79.899 Other long term (current) drug therapy; Z98.890 Other specified postprocedural states
CPT/HCPCS: 50431 ×2; J1644; J3490; Q9967

== ENCOUNTER 2019-07-05 14:04 | Observation (INO) | payer OTHER, MEDICARE ==
[~2019-07-05] VITALS: Ht 165.1 cm; Wt 81.6 kg
[2019-07-05] MEDS ORDERED: MEROPENEM 1 GM VIAL ONE (14:14)
[2019-07-05] MEDS ORDERED: ACETAMINOPHEN EXTRA STRENGTH 500 MG TABLET ONE (14:14)
[2019-07-05] MEDS ORDERED: SODIUM CHLORIDE 0.9% 1000ML 1,000 ML IV ONE (14:14)
[2019-07-05 14:28] LABS: BASOPHILS % (AUTO) 0.2 % (0.0-5.0); EOSINOPHILS % (AUTO) 1.1 % (0.0-8.0); HEMATOCRIT 34.3 % (42-54); LYMPHOCYTES % (AUTO) 8.7 % (21.0-51.0); MEAN CORPUSCULAR HEMOGLOBIN 31.6 pg (27.0-33.0); MEAN CORPUSCULAR HGB CONC 33.8 g/dL (32.0-36.0); MEAN CORPUSCULAR VOLUME 93.4 fL (79-99); PLATELET COUNT (AUTO) 170 K/uL (130-400); RED BLOOD CELL COUNT(AUTO) 3.68 MIL/uL (4.50-6.20); RED CELL DISTRIBUTION WIDTH 13.8 % (11.0-15.5); WHITE BLOOD COUNT (AUTO) 11.9 K/uL (4.8-10.8)
[2019-07-05 14:42] LABS: POTASSIUM 4.4 mmol/L (3.5-5.1)
[2019-07-05 14:44] LABS: INR 0.98 (0.85-1.15); PARTIAL THROMBOPLASTIN TIME 25.8 SEC (26.3-35.5); PROTHROMBIN TIME 10.3 SEC (9.6-11.6)
[2019-07-05 14:47] LABS: ALBUMIN 3.5 g/dL (3.5-5.0); BILIRUBIN,DIRECT 0.1 mg/dL (0.0-0.3); BILIRUBIN,TOTAL 0.5 mg/dL (0.2-1.0); TOTAL PROTEIN, SERUM 7.4 g/dL (6.0-8.3)
[2019-07-05 14:56] LABS: B-TYPE NATRIURETIC PEPTIDE 208 pg/mL (0-100)
[2019-07-05] MEDS ORDERED: DENO60DI SQ (15:40)
[2019-07-05] MEDS ORDERED: FOLI1CAP16 PO (15:40)
[2019-07-05] MEDS ORDERED: PRAV40TA3 PO (15:40)
[2019-07-05] MEDS ORDERED: MONT10TA24 PO (15:40)
[2019-07-05] MEDS ORDERED: LEUP22.52 IM (15:40)
[2019-07-05] MEDS ORDERED: LINA72CA PO (15:40)
[2019-07-05] MEDS ORDERED: CHOL100046 PO (15:40)
[2019-07-05 16:05] LABS: APPEARANCE,URINE CLOUDY (CLEAR); BILIRUBIN,URINE NEGATIVE (NEGATIVE); COLOR,URINE YELLOW (YELLOW); GLUCOSE, URINE (UA) NEGATIVE (NEGATIVE); KETONES,URINE NEGATIVE (NEGATIVE); LEUKOCYTE ESTERASE ,URINE LARGE (NEGATIVE); NITRATE,URINE POSITIVE (NEGATIVE); OCCULT BLOOD,URINE MODERATE (NEGATIVE); PH,URINE 5.5 (5.0-8.0); PROTEIN,URINE TRACE mg/dL (NEGATIVE); UROBILINOGEN,URINE 0.2 mg/dL (0.2-1.0)
[2019-07-05 16:12] LABS: BACTERIA,URINE Moderate /HPF (None Seen); MUCUS,URINE Few LPF (None Seen)
[2019-07-05] MEDS ORDERED: ACETAMINOPHEN 325 MG TAB PO PRN ×3 (16:15→18:00)
[2019-07-05] MEDS: SODIUM CHLORIDE 0.9% 1000ML 1,000 ML IV SCH ×2 (16:15→17:56)
[2019-07-05] MEDS ORDERED: ZOSYN 3.375GM+NS 50ML 50 ML IV ONE (16:41)
[2019-07-05 17:00] VITALS: BP 148/86
[2019-07-05] MEDS: ZOSYN 3.375GM+NS 50ML 50 ML IV SCH (17:00)
[2019-07-05] MEDS ORDERED: DiphenhydrAMINE HCL 50 MG/ML VIAL IV PRN (18:00)
[2019-07-05] MEDS ORDERED: LACTULOSE 20 GM/30 ML UDCUP PO PRN (18:00)
[2019-07-05] MEDS ORDERED: ONDANSETRON HCL 4 MG/2 ML VIAL IV PRN (18:00)
[2019-07-05] MEDS ORDERED: MAG HYDROX/AL HYDROX/SIMETH ES 30 ML SUSP UDCUP PO PRN (18:00)
[2019-07-05] MEDS ORDERED: DIPHENHYDRAMINE HCL 25 MG CAPSULE PO PRN (18:00)
[2019-07-05 19:00] VITALS: BP 136/62
[2019-07-06 00:15] VITALS: BP 135/79
[2019-07-06] MEDS: SODIUM CHLORIDE 0.9% 1000ML 1,000 ML IV SCH ×2 (02:15→05:54)
[2019-07-06 03:00] VITALS: BP 145/61
[2019-07-06 05:34] LABS: HEMATOCRIT 31.9 % (42-54); MEAN CORPUSCULAR HEMOGLOBIN 32.1 pg (27.0-33.0); MEAN CORPUSCULAR HGB CONC 34.1 g/dL (32.0-36.0); MEAN CORPUSCULAR VOLUME 94.2 fL (79-99); NUCLEATED RED BLOOD CELLS 0.1 % (0.0-0.19); PLATELET COUNT (AUTO) 146 K/uL (130-400); RED BLOOD CELL COUNT(AUTO) 3.39 MIL/uL (4.50-6.20); RED CELL DISTRIBUTION WIDTH 14.2 % (11.0-15.5); WHITE BLOOD COUNT (AUTO) 10.4 K/uL (4.8-10.8)
[2019-07-06] MEDS: ZOSYN 3.375GM+NS 50ML 50 ML IV SCH (05:53)
[2019-07-06] MEDS ORDERED: FAMOTIDINE 20MG TAB 20 MG TAB PO SCH (07:00)
[2019-07-06 07:30] VITALS: BP 141/59
[2019-07-06] MEDS ORDERED: LEVO500T2 PO (08:25)
[2019-07-06] MEDS ORDERED: FOLIC ACID/VITAMIN B COMP W-C 1 MG CAP/TAB PO SCH (09:00)
== END 2019-07-06 09:10 | disposition home or self-care (01) ==
LOC: EDH 14:04 → EDHIP 15:30 → 4BH 17:00
PROVIDERS: ADMIT Internal Medicine; ATTEND Internal Medicine
DX: N39.0 Urinary tract infection, site not specified (principal); E86.0 Dehydration; C61 Malignant neoplasm of prostate; C78.00 Secondary malignant neoplasm of unspecified lung; D63.8 Anemia in other chronic diseases classified elsewhere; E78.2 Mixed hyperlipidemia; G72.0 Drug-induced myopathy; K21.9 Gastro-esophageal reflux disease without esophagitis; J30.9 Allergic rhinitis, unspecified; K31.84 Gastroparesis; K64.9 Unspecified hemorrhoids; K80.20 Calculus of gallbladder without cholecystitis without obstruction; M19.90 Unspecified osteoarthritis, unspecified site; M51.9 Unspecified thoracic, thoracolumbar and lumbosacral intervertebral disc disorder; N13.30 Unspecified hydronephrosis; N17.9 Acute kidney failure, unspecified; I12.9 Hypertensive chronic kidney disease with stage 1 through stage 4 chronic kidney disease, or unspecified chronic kidney disease; N18.4 Chronic kidney disease, stage 4 (severe); N31.9 Neuromuscular dysfunction of bladder, unspecified; N40.1 Benign prostatic hyperplasia with lower urinary tract symptoms; R33.8 Other retention of urine; T46.6X5A Adverse effect of antihyperlipidemic and antiarteriosclerotic drugs, initial encounter; T83.512A Infection and inflammatory reaction due to nephrostomy catheter, initial encounter; Y84.2 Radiological procedure and radiotherapy as the cause of abnormal reaction of the patient, or of later complication, without mention of misadventure at the time of the procedure; Y84.6 Urinary catheterization as the cause of abnormal reaction of the patient, or of later complication, without mention of misadventure at the time of the procedure; Z85.46 Personal history of malignant neoplasm of prostate; Z92.3 Personal history of irradiation; Z82.0 Family history of epilepsy and other diseases of the nervous system; Z82.49 Family history of ischemic heart disease and other diseases of the circulatory system; Z82.5 Family history of asthma and other chronic lower respiratory diseases; Z83.3 Family history of diabetes mellitus; Z82.3 Family history of stroke; Z79.899 Other long term (current) drug therapy
CPT/HCPCS: 36415 ×2; 71045; 74176; 80048 ×2; 80076; 81001; 82550; 83605; 83690; 83880; 84484; 85025; 85027; 85610; 85730; 87040 ×2; 87088; 93005; 96365; 96366; 99284; G0378 ×15; J2185; J2543 ×2; J7030 ×2

== ENCOUNTER 2019-07-10 08:54 | Day surgery (SDC) | payer OTHER, MEDICARE ==
[2019-07-07 12:00] LABS: BASOPHILS % (AUTO) 0.7 % (0.0-5.0); EOSINOPHILS % (AUTO) 4.8 % (0.0-8.0); HEMATOCRIT 31.8 % (42-54); MEAN CORPUSCULAR HEMOGLOBIN 32.2 pg (27.0-33.0); MEAN CORPUSCULAR HGB CONC 34.2 g/dL (32.0-36.0); MEAN CORPUSCULAR VOLUME 94.3 fL (79-99); MONOCYTES % (AUTO) 8.4 % (3.0-13.0); NEUTROPHILS % (AUTO) 62.1 % (40.0-77.0); PLATELET COUNT (AUTO) 165 K/uL (130-400); RED BLOOD CELL COUNT(AUTO) 3.37 MIL/uL (4.50-6.20); RED CELL DISTRIBUTION WIDTH 14.4 % (11.0-15.5)
[2019-07-07 12:08] LABS: CREATININE 3.7 mg/dL (0.5-1.5)
[2019-07-07 12:11] LABS: INR 0.99 (0.85-1.15); PARTIAL THROMBOPLASTIN TIME 26.6 SEC (26.3-35.5); PROTHROMBIN TIME 10.4 SEC (9.6-11.6)
[2019-07-07 12:38] VITALS: BP 160/92
[~2019-07-10] VITALS: Ht 167.6 cm; Wt 81.4 kg
[~2019-07-10 08:54] MED LIST changes: -ACET-2743 PO; -B CO1CAP5 PO; +CHOL100046 PO; -CLIN300C9 PO; +DENO60DI SQ; +FOLI1CAP16 PO; +LEUP22.52 IM; +LEVO500T2 PO; +LINA72CA PO; +MONT10TA24 PO
[2019-07-10 09:10] VITALS: BP 155/74
[2019-07-10] MEDS ORDERED: LIDOCAINE HCL 1% MDV 50ML VIAL ONE (09:19)
[2019-07-10] MEDS ORDERED: SODIUM CHLORIDE 0.9% 1000ML 1,000 ML IV ONE (09:33)
[2019-07-10] MEDS ORDERED: IOHEXOL-350 50ML VIAL IV ONE (09:44)
[2019-07-10] MEDS ORDERED: FENTANYL CITRATE PF 50 MCG/1 ML 2ML VIAL ONE (09:49)
[2019-07-10] MEDS ORDERED: MIDAZOLAM HCL 1 MG/ML 2ML VIAL ONE (09:49)
[2019-07-10 10:29] VITALS: BP 156/66
--- NOTE | 2019-07-10 10:29 | NUR ---
RECEIVE PT RECEIVED FROM PONDMAN VIA STRETCHER AWAKE ALERT ORIENTED X3. PT STABLE. NO COMPLAINTS MADE. BILATERAL DRESSINGS TO LOWER BACK DRY AND INTACT, NEPHROSTOMY TUBE SITES NO OOZING NO HEMATOMA NO SWELLING NOTED. BILATERAL NEPHROSTOMY IN PLACE, LEFT DRAINING CLEAR YELLOW OUTPUT, RIGHT NO DRAIN. WILL CONTINUE TO MONITOR PT.
[2019-07-10 10:43] VITALS: BP 161/71
[2019-07-10 10:58] VITALS: BP 152/74
[2019-07-10 11:10] VITALS: BP 145/54
--- NOTE | 2019-07-10 11:30 | NUR ---
DISCHARGE PT DISCHARGED VIA WHEELCHAIR WITH AND DAUGHTER. PT STABLE. NO COMPLAINTS MADE. BILATERAL NEPHROSTOMY TUBES IN PLACE, LEFT DRAINING CLEAR YELLOW OUTPUT, RIGHT NONE. DRESSINGS DRY AND INTACT, NO SWELLING, NO OOZING NO HEMATOMA NOTED. DISCHARGE INSTRUCTIONS GIVEN TO DAUGHTER, VERBALIZED UNDERSTANDING. REPORT GIVEN TO CHAD HANKS, HOME HEALTH NURSE, [facility].
--- NOTE | 2019-07-10 11:45 | NUR ---
PAIN PT COMPLAINING OF PAIN TO PUNCTURE SITE RIGHT GROIN. SITE SOFT, DRESSING DRY AND INTACT, NO OOZING NO HEMATOMA NOTED. PER PT, SHE CANNOT TAKE TYLENOL, SHE ONLY TAKES TRAMADOL FOR PAIN AT HOME. NOTIFIED SHOAIB, DR. LANDRUM'S STATE AUDITOR. PER SHOAIB, PT MAY TAKE TRAMADOL 50 MG PO X1. Addendum: 07/10/19 at 1313 by PRASHANTH RAMIREZ RN RN WRONG PT
== END 2019-07-10 11:30 | disposition home or self-care (01) ==
LOC: DAH 08:54
PROVIDERS: ATTEND Urology
DX: Z43.6 Encounter for attention to other artificial openings of urinary tract (principal); N13.30 Unspecified hydronephrosis; E78.00 Pure hypercholesterolemia, unspecified; C61 Malignant neoplasm of prostate; N19 Unspecified kidney failure; Z79.2 Long term (current) use of antibiotics; Z79.899 Other long term (current) drug therapy; Z98.890 Other specified postprocedural states; Z82.49 Family history of ischemic heart disease and other diseases of the circulatory system
CPT/HCPCS: 36415; 50435; 80048; 85025; 85610; 85730; A4215; A4216; A4221; A4222; A4223 ×3; A4606; C1729 ×2; C1769; J1644; J2250; J3010; J3490; J7030; Q9967; 99156

== ENCOUNTER → 2019-07-13 | Outpatient (CLI) | payer OTHER, MEDICARE | END | disposition home or self-care (01) | LOC: RAH 08:45 | PROVIDERS: ATTEND Urology | DX: K80.20 Calculus of gallbladder without cholecystitis without obstruction (principal); N13.30 Unspecified hydronephrosis; N32.89 Other specified disorders of bladder; K57.90 Diverticulosis of intestine, part unspecified, without perforation or abscess without bleeding; M47.815 Spondylosis without myelopathy or radiculopathy, thoracolumbar region; J98.4 Other disorders of lung | CPT/HCPCS: 74176 ==

== ENCOUNTER 2019-10-13 08:29 | Day surgery (SDC) | payer OTHER, MEDICARE ==
[2019-10-12 12:53] LABS: BASOPHILS % (AUTO) 0.4 % (0.0-5.0); EOSINOPHILS % (AUTO) 2.5 % (0.0-8.0); HEMATOCRIT 32.9 % (42-54); LYMPHOCYTES % (AUTO) 19.5 % (21.0-51.0); MEAN CORPUSCULAR HEMOGLOBIN 30.3 pg (27.0-33.0); MEAN CORPUSCULAR HGB CONC 33.1 g/dL (32.0-36.0); MEAN CORPUSCULAR VOLUME 91.4 fL (79-99); MONOCYTES % (AUTO) 7.3 % (3.0-13.0); PLATELET COUNT (AUTO) 187 K/uL (130-400); RED CELL DISTRIBUTION WIDTH 13.7 % (11.0-15.5); WHITE BLOOD COUNT (AUTO) 9.3 K/uL (4.8-10.8)
[2019-10-12 12:58] VITALS: BP 140/57
[2019-10-12 13:01] LABS: CREATININE 3.7 mg/dL (0.5-1.5); POTASSIUM 4.1 mmol/L (3.5-5.1)
[2019-10-12 13:07] LABS: INR 0.95 (0.85-1.15); PARTIAL THROMBOPLASTIN TIME 25.1 SEC (26.3-35.5)
[~2019-10-13] VITALS: Ht 167.6 cm; Wt 81.5 kg
[2019-10-13 08:33] VITALS: BP 154/75
[2019-10-13] MEDS ORDERED: SODIUM CHLORIDE 0.9% 1000ML 1,000 ML IV ONE (08:40)
[2019-10-13] MEDS ORDERED: LIDOCAINE HCL 1% MDV 50ML VIAL ONE (10:11)
[2019-10-13] MEDS ORDERED: IOHEXOL-350 50ML VIAL IV ONE (10:11)
[2019-10-13 11:35] VITALS: BP 152/82
--- NOTE | 2019-10-13 11:45 | NUR ---
MERIT URINARY DRAIN BAG FLUSHED WITH 10 ML OF NS/PATENT.
[2019-10-13 11:50] VITALS: BP 152/92
--- NOTE | 2019-10-13 12:15 | NUR ---
PT LEFT VIA WHEELCHAIR IN PVT CAR NO COMPLICATIONS,PT. V/S STABLE D/C INSTRUCTIONS GIVEN TO DAUGHTER IN [place].
== END 2019-10-13 12:15 ==
LOC: DAH 08:29
PROVIDERS: ATTEND Urology
DX: N13.30 Unspecified hydronephrosis (principal); E78.00 Pure hypercholesterolemia, unspecified; Z85.46 Personal history of malignant neoplasm of prostate; Z79.899 Other long term (current) drug therapy; Z98.890 Other specified postprocedural states; Z72.89 Other problems related to lifestyle
CPT/HCPCS: 36415; 50435 ×2; 80048; 85025; 85610; 85730; A4215; A4221; A4222; A4223; A4663; C1729 ×2; C1769; J1644; J3490; J7030; Q9967; 75984

== ENCOUNTER → 2019-12-20 | Outpatient (CLI) | payer OTHER, MEDICARE ==
[~2019-12-20] VITALS: Ht 165.1 cm; Wt 81.1 kg
[~2019-12-20] MED LIST changes: -MONT10TA24 PO; +MONT10TA26 PO
[2019-12-20 09:38] LABS: BASOPHILS % (AUTO) 0.7 % (0.0-5.0); EOSINOPHILS % (AUTO) 5.2 % (0.0-8.0); HEMATOCRIT 35.8 % (42-54); LYMPHOCYTES % (AUTO) 19.1 % (21.0-51.0); MEAN CORPUSCULAR HEMOGLOBIN 30.6 pg (27.0-33.0); MONOCYTES % (AUTO) 7.9 % (3.0-13.0); NEUTROPHILS % (AUTO) 66.6 % (40.0-77.0); PLATELET COUNT (AUTO) 192 K/uL (130-400); RED BLOOD CELL COUNT(AUTO) 3.85 MIL/uL (4.50-6.20); RED CELL DISTRIBUTION WIDTH 13.2 % (11.0-15.5); WHITE BLOOD COUNT (AUTO) 5.8 K/uL (4.8-10.8)
[2019-12-20 10:01] LABS: CREATININE 3.9 mg/dL (0.5-1.5); INR 0.93 (0.85-1.15); PARTIAL THROMBOPLASTIN TIME 24.7 SEC (26.3-35.5); POTASSIUM 4.4 mmol/L (3.5-5.1); PROTHROMBIN TIME 10.1 SEC (9.6-11.6)
[2019-12-20 10:10] VITALS: BP 140/75
== END | disposition home or self-care (01) ==
LOC: DAH 10:00 → EDSTATUS 12-22 08:00
PROVIDERS: ATTEND Urology
DX: Z01.818 Encounter for other preprocedural examination (principal); N13.1 Hydronephrosis with ureteral stricture, not elsewhere classified; Z79.899 Other long term (current) drug therapy; Z79.2 Long term (current) use of antibiotics
CPT/HCPCS: 36415; 80048; 85025; 85610; 85730

== ENCOUNTER 2020-03-04 07:43 | Day surgery (SDC) | payer OTHER, MEDICARE ==
[~2020-03-04] VITALS: Ht 167.6 cm; Wt 80.3 kg
[2020-03-04 08:12] LABS: BASOPHILS % (AUTO) 0.5 % (0.0-5.0); EOSINOPHILS % (AUTO) 4.1 % (0.0-8.0); LYMPHOCYTES % (AUTO) 22.3 % (21.0-51.0); MEAN CORPUSCULAR HEMOGLOBIN 30.8 pg (27.0-33.0); MEAN CORPUSCULAR HGB CONC 33.4 g/dL (32.0-36.0); MEAN CORPUSCULAR VOLUME 92.2 fL (79-99); MONOCYTES % (AUTO) 7.3 % (3.0-13.0); NEUTROPHILS % (AUTO) 65.5 % (40.0-77.0); PLATELET COUNT (AUTO) 187 K/uL (130-400); RED BLOOD CELL COUNT(AUTO) 3.47 MIL/uL (4.50-6.20); RED CELL DISTRIBUTION WIDTH 13.4 % (11.0-15.5); WHITE BLOOD COUNT (AUTO) 6.3 K/uL (4.8-10.8)
[2020-03-04 08:31] LABS: CREATININE 4.2 mg/dL (0.5-1.5); INR 0.97 (0.85-1.15); PARTIAL THROMBOPLASTIN TIME 25.7 SEC (26.3-35.5); POTASSIUM 4.1 mmol/L (3.5-5.1); PROTHROMBIN TIME 10.5 SEC (9.6-11.6)
[2020-03-04 08:53] VITALS: BP 147/71
[2020-03-04] MEDS ORDERED: SODIUM CHLORIDE 0.9% 1000ML 1,000 ML IV ONE (09:02)
[2020-03-04] MEDS ORDERED: IODIXANOL 320 MG/ML 100 ML VIAL ONE (09:58)
[2020-03-04] MEDS ORDERED: MIDAZOLAM HCL 1 MG/ML 2ML VIAL ONE (09:58)
[2020-03-04] MEDS ORDERED: FENTANYL CITRATE PF 50 MCG/1 ML 2ML VIAL ONE (09:58)
[2020-03-04] MEDS ORDERED: LIDOCAINE HCL 1% MDV 50ML VIAL ONE (09:59)
[2020-03-04 11:00] VITALS: BP 176/78
[2020-03-04 11:30] VITALS: BP 168/75
== END 2020-03-04 11:41 | disposition home or self-care (01) ==
LOC: DAH 07:43
PROVIDERS: ATTEND Urology
DX: T83.89XA Other specified complication of genitourinary prosthetic devices, implants and grafts, initial encounter (principal); N13.1 Hydronephrosis with ureteral stricture, not elsewhere classified; C61 Malignant neoplasm of prostate; E78.00 Pure hypercholesterolemia, unspecified; Z79.899 Other long term (current) drug therapy; Z98.890 Other specified postprocedural states; Y83.8 Other surgical procedures as the cause of abnormal reaction of the patient, or of later complication, without mention of misadventure at the time of the procedure
CPT/HCPCS: 36415; 50435; 80048; 85025; 85610; 85730; A4215; A4216; A4221; A4222; A4223 ×3; A4606; A4663; C1729 ×2; C1769; J1644; J2250; J3010; J3490; J7030; Q9967; 99156

== ENCOUNTER 2020-06-24 08:00 | Day surgery (SDC) | payer OTHER, MEDICARE ==
[2020-06-18 16:10] LABS: BASOPHILS % (AUTO) 0.4 % (0.0-5.0); EOSINOPHILS % (AUTO) 3.2 % (0.0-8.0); HEMATOCRIT 32.3 % (42-54); LYMPHOCYTES % (AUTO) 24.1 % (21.0-51.0); MEAN CORPUSCULAR HEMOGLOBIN 31.1 pg (27.0-33.0); MEAN CORPUSCULAR HGB CONC 34.1 g/dL (32.0-36.0); MEAN CORPUSCULAR VOLUME 91.2 fL (79-99); MONOCYTES % (AUTO) 6.2 % (3.0-13.0); NEUTROPHILS % (AUTO) 65.8 % (40.0-77.0); PLATELET COUNT (AUTO) 187 K/uL (130-400); RED BLOOD CELL COUNT(AUTO) 3.54 MIL/uL (4.50-6.20); RED CELL DISTRIBUTION WIDTH 13.5 % (11.0-15.5); WHITE BLOOD COUNT (AUTO) 6.9 K/uL (4.8-10.8)
[2020-06-18 16:18] LABS: CREATININE 3.6 mg/dL (0.5-1.5); POTASSIUM 4.1 mmol/L (3.5-5.1)
[2020-06-18 16:20] LABS: INR 0.91 (0.85-1.15); PARTIAL THROMBOPLASTIN TIME 25.3 SEC (26.3-35.5); PROTHROMBIN TIME 9.9 SEC (9.6-11.6)
[2020-06-21 14:09] VITALS: BP 132/70
[2020-06-24] MEDS: SODIUM CHLORIDE 0.9% 1000ML 1,000 ML IV ONE (09:46)
[2020-06-24] MEDS ORDERED: MIDAZOLAM HCL 1 MG/ML 2ML VIAL ONE (10:24)
[2020-06-24] MEDS ORDERED: LIDOCAINE HCL 1% MDV 50ML VIAL ONE (10:24)
[2020-06-24] MEDS ORDERED: FENTANYL CITRATE PF 50 MCG/1 ML 2ML VIAL ONE (10:24)
[2020-06-24] MEDS ORDERED: IODIXANOL 320 MG/ML 100 ML VIAL ONE (11:08)
[2020-06-24 12:20] VITALS: BP 139/76
[2020-06-24 12:25] VITALS: BP 139/76
[2020-06-24 12:35] VITALS: BP 124/79
[2020-06-24 13:00] VITALS: BP 134/72
== END 2020-06-24 13:09 | disposition home or self-care (01) ==
LOC: EDSTATUS 08:00 → DAH 08:00 → EDSTATUS 08:00 → DAH 13:09
PROVIDERS: ATTEND Urology
DX: N13.1 Hydronephrosis with ureteral stricture, not elsewhere classified (principal); C61 Malignant neoplasm of prostate; N19 Unspecified kidney failure; N32.81 Overactive bladder; Z98.890 Other specified postprocedural states; Z79.899 Other long term (current) drug therapy; Z20.828 Contact with and (suspected) exposure to other viral communicable diseases
CPT/HCPCS: 36415; 50435; 80048; 85025; 85610; 85730; A4215; A4221; A4222; A4223; A4663; C1729 ×2; C1769 ×2; C9803; J1644 ×2; J2250; J3010; J3490; J7030; Q9967; U0003; 99156; 99157

== ENCOUNTER → 2020-06-26 | Outpatient (CLI) | payer OTHER, MEDICARE | END | disposition home or self-care (01) | LOC: RAH 11:55 | PROVIDERS: ATTEND Internal Medicine | DX: R07.81 Pleurodynia (principal); M47.814 Spondylosis without myelopathy or radiculopathy, thoracic region | CPT/HCPCS: 71100 ==

== ENCOUNTER → 2020-07-10 | Outpatient (CLI) | payer OTHER, MEDICARE | END | disposition home or self-care (01) | LOC: RAH 14:06 | PROVIDERS: ATTEND Internal Medicine | DX: I87.8 Other specified disorders of veins (principal); M79.89 Other specified soft tissue disorders; R60.0 Localized edema | CPT/HCPCS: 93971 ==

== ENCOUNTER 2020-09-24 08:09 | Day surgery (SDC) | payer OTHER, MEDICARE ==
[2020-09-20 10:30] LABS: BASOPHILS % (AUTO) 0.8 % (0.0-5.0); EOSINOPHILS % (AUTO) 3.4 % (0.0-8.0); HEMATOCRIT 35.4 % (42-54); LYMPHOCYTES % (AUTO) 25.2 % (21.0-51.0); MEAN CORPUSCULAR HEMOGLOBIN 30.7 pg (27.0-33.0); MEAN CORPUSCULAR HGB CONC 33.3 g/dL (32.0-36.0); MEAN CORPUSCULAR VOLUME 92.2 fL (79-99); MONOCYTES % (AUTO) 6.8 % (3.0-13.0); NEUTROPHILS % (AUTO) 63.5 % (40.0-77.0); PLATELET COUNT (AUTO) 228 K/uL (130-400); RED BLOOD CELL COUNT(AUTO) 3.84 MIL/uL (4.50-6.20); RED CELL DISTRIBUTION WIDTH 12.7 % (11.0-15.5); WHITE BLOOD COUNT (AUTO) 6.2 K/uL (4.8-10.8)
[2020-09-20 10:45] LABS: INR 0.94 (0.85-1.15); PROTHROMBIN TIME 10.1 SEC (9.6-11.6)
[2020-09-20 10:46] LABS: PARTIAL THROMBOPLASTIN TIME 25.5 SEC (26.3-35.5)
[2020-09-20 10:50] LABS: CREATININE 3.8 mg/dL (0.5-1.5); POTASSIUM 4.2 mmol/L (3.5-5.1)
[~2020-09-24 08:09] MED LIST changes: -MONT10TA26 PO; +MONT10TA96 PO
[2020-09-24] MEDS ORDERED: LIDOCAINE HCL 1% MDV 50ML VIAL ONE (09:57)
[2020-09-24] MEDS ORDERED: IODIXANOL 320 MG/ML 100 ML VIAL ONE (09:57)
[2020-09-24] MEDS ORDERED: MIDAZOLAM HCL 1 MG/ML 2ML VIAL ONE (10:08)
[2020-09-24] MEDS ORDERED: FENTANYL CITRATE PF 50 MCG/1 ML 2ML VIAL ONE (10:08)
== END 2020-09-24 11:32 | disposition home or self-care (01) ==
LOC: DAH 08:09
PROVIDERS: ATTEND Urology
DX: N13.1 Hydronephrosis with ureteral stricture, not elsewhere classified (principal); C61 Malignant neoplasm of prostate; N32.81 Overactive bladder; E78.00 Pure hypercholesterolemia, unspecified; Z79.899 Other long term (current) drug therapy; Z82.49 Family history of ischemic heart disease and other diseases of the circulatory system
CPT/HCPCS: 36415; 50435; 80048; 85025; 85610; 85730; 93005; A4215; A4221; A4222; A4223; A4663; C1729 ×2; C1769; C9803; J1644; J2250; J3010; J3490; Q9967; U0003; 99156

== ENCOUNTER → 2020-11-12 | Outpatient (CLI) | payer OTHER, MEDICARE ==
[~2020-11-12] MED LIST changes: +MONT10TA32 PO; -MONT10TA96 PO
== END | disposition home or self-care (01) ==
LOC: OIH 09:14
PROVIDERS: ATTEND Internal Medicine
DX: K59.00 Constipation, unspecified (principal)
CPT/HCPCS: 74018

== ENCOUNTER 2020-12-18 07:02 | Day surgery (SDC) | payer OTHER, MEDICARE ==
[2020-12-12 14:31] LABS: BASOPHILS % (AUTO) 0.4 % (0.0-5.0); EOSINOPHILS % (AUTO) 2.9 % (0.0-8.0); HEMATOCRIT 31.4 % (42-54); LYMPHOCYTES % (AUTO) 19.9 % (21.0-51.0); MEAN CORPUSCULAR HEMOGLOBIN 30.1 pg (27.0-33.0); MEAN CORPUSCULAR HGB CONC 33.1 g/dL (32.0-36.0); MONOCYTES % (AUTO) 6.2 % (3.0-13.0); NEUTROPHILS % (AUTO) 70.2 % (40.0-77.0); PLATELET COUNT (AUTO) 203 K/uL (130-400); RED BLOOD CELL COUNT(AUTO) 3.45 MIL/uL (4.50-6.20); RED CELL DISTRIBUTION WIDTH 12.9 % (11.0-15.5); WHITE BLOOD COUNT (AUTO) 7.6 K/uL (4.8-10.8)
[2020-12-12 14:44] LABS: INR 0.97 (0.85-1.15); PROTHROMBIN TIME 10.6 SEC (9.6-11.6)
[2020-12-12 14:46] LABS: PARTIAL THROMBOPLASTIN TIME 24.3 SEC (26.3-35.5)
[2020-12-12 14:59] LABS: CREATININE 4.5 mg/dL (0.5-1.5); POTASSIUM 3.9 mmol/L (3.5-5.1)
[2020-12-17 15:33] VITALS: BP 135/64
[~2020-12-18] VITALS: Ht 167.6 cm; Wt 78.5 kg
[~2020-12-18 07:02] MED LIST changes: +MONT-39 PO; -MONT10TA32 PO
[2020-12-18 07:15] VITALS: BP 123/65
[2020-12-18] MEDS ORDERED: 0.9%NACL 1000ML 1,000 ML IV ONE (07:57)
[2020-12-18] MEDS ORDERED: AMLO-257 PO (08:45)
[2020-12-18] MEDS ORDERED: CHOL100040 PO (08:45)
[2020-12-18] MEDS ORDERED: ACET-2743 PO (08:45)
[2020-12-18] MEDS ORDERED: CALC0.253 PO (08:45)
[2020-12-18] MEDS ORDERED: LINA72CA PO (08:45)
[2020-12-18] MEDS ORDERED: B CO1CAP5 PO (08:45)
[2020-12-18] MEDS ORDERED: TORS10TA18 PO (08:45)
[2020-12-18] MEDS ORDERED: LIDOCAINE HCL 1% MDV 50ML VIAL ONE (08:49)
[2020-12-18] MEDS ORDERED: IODIXANOL 320 MG/ML 100 ML VIAL ONE (08:49)
[2020-12-18 09:50] VITALS: BP 148/62
[2020-12-18 10:05] VITALS: BP 143/74
[2020-12-18 10:20] VITALS: BP 152/76
[2021-02-04] MEDS ORDERED: LACT10SO9 PO (08:59)
[2021-02-04] MEDS ORDERED: TORS10TA18 PO (08:59)
[2021-02-06] MEDS ORDERED: PRED10TA3 PO (09:09)
[2021-02-06] MEDS ORDERED: METO5 PO (09:09)
== END 2020-12-18 10:25 | disposition home or self-care (01) ==
LOC: DAH 07:02
PROVIDERS: ATTEND Urology
DX: N13.1 Hydronephrosis with ureteral stricture, not elsewhere classified (principal); Z20.822 Contact with and (suspected) exposure to COVID-19; N32.81 Overactive bladder; E78.00 Pure hypercholesterolemia, unspecified; Z85.46 Personal history of malignant neoplasm of prostate; Z79.01 Long term (current) use of anticoagulants; Z98.890 Other specified postprocedural states; Z79.899 Other long term (current) drug therapy; Z92.3 Personal history of irradiation
CPT/HCPCS: 36415; 50435; 80048; 85025; 85610; 85730; 93005; A4215; A4221; A4222; A4223; A4358; A4663; A6260; C1729 ×2; C1769; C9803; J1644; J3490; J7030; Q9967; U0003

== ENCOUNTER 2021-01-12 14:51 | Inpatient (IN) | payer OTHER, MEDICARE ==
[~2021-01-12] VITALS: Ht 167.6 cm; Wt 78.9 kg
[2021-01-12] MEDS: CEFTRIAXONE 1G VIAL IV SCH (09:00)
[~2021-01-12 14:51] MED LIST changes: +ACET-2743 PO; +AMLO-257 PO; +B CO1CAP5 PO; +CALC0.253 PO; +CHOL100040 PO; -CHOL100046 PO; -FOLI1CAP16 PO; -LEVO500T2 PO; -PRAV40TA3 PO; +TORS10TA18 PO
[2021-01-12 17:46] LABS: BASOPHILS % (AUTO) 0.5 % (0.0-5.0); EOSINOPHILS % (AUTO) 2.8 % (0.0-8.0); HEMATOCRIT 32.1 % (42-54); MEAN CORPUSCULAR HEMOGLOBIN 30.9 pg (27.0-33.0); MEAN CORPUSCULAR VOLUME 90.9 fL (79-99); MONOCYTES % (AUTO) 6.8 % (3.0-13.0); NEUTROPHILS % (AUTO) 67.4 % (40.0-77.0); PLATELET COUNT (AUTO) 201 K/uL (130-400); RED BLOOD CELL COUNT(AUTO) 3.53 MIL/uL (4.50-6.20); RED CELL DISTRIBUTION WIDTH 13.4 % (11.0-15.5); WHITE BLOOD COUNT (AUTO) 7.9 K/uL (4.8-10.8)
[2021-01-12 17:57] LABS: CREATININE 3.8 mg/dL (0.5-1.5); POTASSIUM 3.9 mmol/L (3.5-5.1)
[2021-01-12 18:01] LABS: PARTIAL THROMBOPLASTIN TIME 22.5 SEC (26.3-35.5); PROTHROMBIN TIME 10.4 SEC (9.6-11.6)
[2021-01-12 18:06] LABS: ALBUMIN 3.1 g/dL (3.5-5.0); BILIRUBIN,TOTAL 0.2 mg/dL (0.2-1.0); TOTAL PROTEIN, SERUM 7.2 g/dL (6.0-8.3)
[2021-01-12] MEDS ORDERED: NICARDIPINE 25MG INJ IV ONE (18:30)
[2021-01-12] MEDS: 0.9%NACL 1000ML 1,000 ML IV SCH (18:30)
[2021-01-12] MEDS ORDERED: HYDRALAZINE 20MG/ML VIAL ONE (18:54)
[2021-01-12] MEDS ORDERED: ONDANSETRON 4MG INJ IVP PRN (20:45)
[2021-01-12] MEDS ORDERED: NICARDIPINE 25MG INJ 50 MG in 0.9% NACL 250ML 230 ML IV SCH (20:45)
[2021-01-12] MEDS: ACETAMINOPHEN 325 MG TAB PO SCH (20:45)
[2021-01-12 21:47] LABS: CANNABINOID SCREEN,URINE NEGATIVE (NEGATIVE); PHENCYCLIDINE SCREEN,URINE NEGATIVE (NEGATIVE)
[2021-01-12 22:13] LABS: AMPHET/METH SCREEN,URINE NEGATIVE (NEGATIVE); BARBITURATE SCREEN, URINE NEGATIVE (NEGATIVE); BENZODIAZEPINES SCREEN,URINE NEGATIVE (NEGATIVE); COCAINE SCREEN,URINE NEGATIVE (NEGATIVE); OPIATE SCREEN,URINE NEGATIVE (NEGATIVE)
[2021-01-13] VITALS (44 sets, daily range): BP systolic 114–156; BP diastolic 48–83
[2021-01-13] MEDS ORDERED: CHOL-34 PO (00:03)
[2021-01-13] MEDS ORDERED: B CO1CAP5 PO (00:03)
[2021-01-13] MEDS: ACETAMINOPHEN 325 MG TAB PO SCH ×3 (02:45→14:45)
[2021-01-13] MEDS: 0.9%NACL 1000ML 1,000 ML IV SCH (07:17)
[2021-01-13] MEDS ORDERED: FOLI1CAP16 PO (08:47)
[2021-01-13] MEDS ORDERED: FERR325T22 PO (08:47)
[2021-01-13] MEDS ORDERED: AMLODIPINE 5 MG TAB PO SCH ×2 (09:00→21:00)
[2021-01-13] MEDS ORDERED: CEFTRIAXONE 1G VIAL IV SCH (09:28)
[2021-01-13] MEDS ORDERED: MAG/ALUM/SIMETH 30 ML UDCUP PO PRN (09:30)
[2021-01-13] MEDS ORDERED: LACTULOSE 20 GM/30 ML UDCUP PO PRN (09:30)
[2021-01-13] MEDS ORDERED: HYDRALAZINE 20MG/ML VIAL IV PRN (09:30)
[2021-01-13] MEDS ORDERED: ONDANSETRON 4MG INJ IV PRN (09:30)
[2021-01-13] MEDS ORDERED: ACETAMINOPHEN 325 MG TAB PO PRN ×3 (09:30→16:00)
[2021-01-13] MEDS: Vitamin B Complex/Vit C/Folic Acid PO SCH (09:42)
[2021-01-13] MEDS: FERROUS SULFATE 325 MG TABLET.DR PO SCH (09:42)
[2021-01-13 10:18] LABS: APPEARANCE,URINE TURBID (CLEAR); BILIRUBIN,URINE NEGATIVE (NEGATIVE); COLOR,URINE YELLOW (YELLOW); GLUCOSE, URINE (UA) NEGATIVE (NEGATIVE); KETONES,URINE NEGATIVE (NEGATIVE); LEUKOCYTE ESTERASE ,URINE MODERATE (NEGATIVE); NITRATE,URINE NEGATIVE (NEGATIVE); OCCULT BLOOD,URINE MODERATE (NEGATIVE); PH,URINE 5.5 (5.0-8.0); PROTEIN,URINE >=300 mg/dL (NEGATIVE); UROBILINOGEN,URINE 0.2 mg/dL (0.2-1.0)
[2021-01-13 10:25] LABS: WBC,URINE TNTC /HPF (0-1)
[2021-01-13 10:26] LABS: AMORPHOUS SEDIMENT,UR Few /LPF (None Seen); BACTERIA,URINE Few /HPF (None Seen); SQUAMOUS EPITHELIAL CELL,UR Few /HPF (0-2)
[2021-01-13] MEDS ORDERED: HYDRALAZINE HCL 10 MG TABLET ONE (11:51)
[2021-01-13] MEDS: HYDRALAZINE HCL 10 MG TABLET PO SCH ×2 (11:52→20:50)
[2021-01-13] MEDS ORDERED: CEFTRIAXONE 500MG VIAL IV SCH (12:00)
[2021-01-13] MEDS ORDERED: TORSEMIDE 20 MG TAB PO SCH (21:00)
[2021-01-13] MEDS ORDERED: CALCITRIOL 0.25 MCG CAP PO SCH (21:00)
[2021-01-13] MEDS ORDERED: MONTELUKAST SODIUM 10 MG TAB PO SCH (21:00)
[2021-01-14] VITALS (15 sets, daily range): BP systolic 100–172; BP diastolic 42–77
[2021-01-14] MEDS: 0.9%NACL 1000ML 1,000 ML IV SCH ×2 (02:53→10:30)
[2021-01-14 05:14] LABS: HEMATOCRIT 29.6 % (42-54); MEAN CORPUSCULAR HGB CONC 35.1 g/dL (32.0-36.0); MEAN CORPUSCULAR VOLUME 88.4 fL (79-99); RED BLOOD CELL COUNT(AUTO) 3.35 MIL/uL (4.50-6.20); RED CELL DISTRIBUTION WIDTH 13.3 % (11.0-15.5); WHITE BLOOD COUNT (AUTO) 7.9 K/uL (4.8-10.8)
[2021-01-14 05:29] LABS: CREATININE 3.7 mg/dL (0.5-1.5); POTASSIUM 3.9 mmol/L (3.5-5.1)
[2021-01-14] MEDS: Vitamin B Complex/Vit C/Folic Acid PO SCH (07:42)
[2021-01-14] MEDS: CEFTRIAXONE 1G VIAL IV SCH (07:42)
[2021-01-14] MEDS: FERROUS SULFATE 325 MG TABLET.DR PO SCH (07:43)
[2021-01-14] MEDS: HYDRALAZINE HCL 10 MG TABLET PO SCH ×2 (07:43→13:12)
[2021-01-14] MEDS ORDERED: HYDR-3420 PO (14:33)
[2021-01-14] MEDS ORDERED: LEVO750T46 PO (14:33)
[2021-02-04] MEDS ORDERED: LACT10SO9 PO (08:59)
[2021-02-04] MEDS ORDERED: TORS10TA18 PO (08:59)
[2021-02-06] MEDS ORDERED: PRED10TA3 PO (09:09)
[2021-02-06] MEDS ORDERED: METO5 PO (09:09)
== END 2021-01-14 15:50 | disposition home or self-care (01) | DRG 64 ==
LOC: EDH 14:51 → EDHIP 18:20 → 2CH 23:42
PROVIDERS: ADMIT Internal Medicine; ATTEND Internal Medicine
DX: I62.9 Nontraumatic intracranial hemorrhage, unspecified (principal); G93.6 Cerebral edema; N18.4 Chronic kidney disease, stage 4 (severe); I16.9 Hypertensive crisis, unspecified; N25.81 Secondary hyperparathyroidism of renal origin; G72.0 Drug-induced myopathy; N13.8 Other obstructive and reflux uropathy; N39.0 Urinary tract infection, site not specified; N40.1 Benign prostatic hyperplasia with lower urinary tract symptoms; E78.2 Mixed hyperlipidemia; K21.9 Gastro-esophageal reflux disease without esophagitis; M19.90 Unspecified osteoarthritis, unspecified site; M51.9 Unspecified thoracic, thoracolumbar and lumbosacral intervertebral disc disorder; K80.20 Calculus of gallbladder without cholecystitis without obstruction; D63.8 Anemia in other chronic diseases classified elsewhere; I12.9 Hypertensive chronic kidney disease with stage 1 through stage 4 chronic kidney disease, or unspecified chronic kidney disease; J84.10 Pulmonary fibrosis, unspecified; T46.6X5A Adverse effect of antihyperlipidemic and antiarteriosclerotic drugs, initial encounter; K31.84 Gastroparesis; J30.9 Allergic rhinitis, unspecified; K64.9 Unspecified hemorrhoids; R33.8 Other retention of urine; N32.89 Other specified disorders of bladder; N31.9 Neuromuscular dysfunction of bladder, unspecified; Z79.899 Other long term (current) drug therapy; Y92.89 Other specified places as the place of occurrence of the external cause; Z93.6 Other artificial openings of urinary tract status; Z87.440 Personal history of urinary (tract) infections; Z92.3 Personal history of irradiation; Z85.46 Personal history of malignant neoplasm of prostate; Z82.0 Family history of epilepsy and other diseases of the nervous system; Z82.3 Family history of stroke; Z82.49 Family history of ischemic heart disease and other diseases of the circulatory system; Z82.5 Family history of asthma and other chronic lower respiratory diseases; Z83.3 Family history of diabetes mellitus
CPT/HCPCS: 36415; 70450; 70551; 80048; 80053; 80305; 81001; 84484; 85025; 85027; 85610; 85730; 87077; 87088; 87186; 93005; G0378; J0360; J0696; J2405; J3490; J7030

== ENCOUNTER → 2021-02-12 | Outpatient (CLI) | payer OTHER, MEDICARE ==
[~2021-02-12] MED LIST changes: -ACET-2743 PO; -B CO1CAP5 PO; +CHOL-34 PO; -CHOL100040 PO; +FERR325T22 PO; -FERS325 PO; +FOLI1CAP16 PO; +HYDR-3420 PO; +LACT10SO9 PO; -LINA72CA PO; +METO5 PO; -MONT-39 PO; +MONT10TA32 PO; +PRED10TA3 PO
== END | disposition home or self-care (01) ==
LOC: RAH 09:35
PROVIDERS: ATTEND Neuromusculoskeletal Medicine & OMM
DX: G93.89 Other specified disorders of brain (principal); I62.9 Nontraumatic intracranial hemorrhage, unspecified
CPT/HCPCS: 70551

== ENCOUNTER 2021-03-06 11:13 | Day surgery (SDC) | payer OTHER, MEDICARE ==
[~2021-03-06] VITALS: Ht 167.6 cm; Wt 78.9 kg
[2021-03-06 12:15] LABS: BASOPHILS % (AUTO) 0.3 % (0.0-5.0); EOSINOPHILS % (AUTO) 2.1 % (0.0-8.0); HEMATOCRIT 34.7 % (42-54); LYMPHOCYTES % (AUTO) 14.5 % (21.0-51.0); MEAN CORPUSCULAR HEMOGLOBIN 30.6 pg (27.0-33.0); MEAN CORPUSCULAR HGB CONC 33.1 g/dL (32.0-36.0); MEAN CORPUSCULAR VOLUME 92.3 fL (79-99); MONOCYTES % (AUTO) 7.9 % (3.0-13.0); NEUTROPHILS % (AUTO) 73.1 % (40.0-77.0); PLATELET COUNT (AUTO) 182 K/uL (130-400); RED BLOOD CELL COUNT(AUTO) 3.76 MIL/uL (4.50-6.20); RED CELL DISTRIBUTION WIDTH 13.1 % (11.0-15.5); WHITE BLOOD COUNT (AUTO) 9.5 K/uL (4.8-10.8)
[2021-03-06 12:29] LABS: INR 0.96 (0.85-1.15); PROTHROMBIN TIME 10.5 SEC (9.6-11.6)
[2021-03-06 12:30] VITALS: BP 154/74
[2021-03-06 12:30] LABS: PARTIAL THROMBOPLASTIN TIME 21.6 SEC (26.3-35.5)
[2021-03-06 12:39] LABS: CREATININE 3.6 mg/dL (0.5-1.5); POTASSIUM 4.1 mmol/L (3.5-5.1)
[2021-03-06] MEDS ORDERED: SODIUM CHLORIDE 0.9% 1000ML 1,000 ML IV ONE (13:19)
[2021-03-06 15:21] VITALS: BP 136/60
[2021-03-06 17:50] VITALS: BP 172/79
[2021-03-06] MEDS ORDERED: IODIXANOL 320 MG/ML 100 ML VIAL ONE (17:57)
[2021-03-06] MEDS ORDERED: LIDOCAINE HCL 1% MDV 50ML VIAL ONE (17:58)
[2021-03-06] MEDS ORDERED: FENTANYL CITRATE PF 50 MCG/1 ML 2ML VIAL ONE (17:58)
[2021-03-06] MEDS ORDERED: MIDAZOLAM HCL 1 MG/ML 2ML VIAL ONE (17:58)
[2021-03-06 18:05] VITALS: BP 168/78
== END 2021-03-06 18:05 | disposition home or self-care (01) ==
LOC: CLH 11:13 → DAH 11:13 → CLH 18:05
PROVIDERS: ATTEND Urology
DX: N13.1 Hydronephrosis with ureteral stricture, not elsewhere classified (principal); E78.00 Pure hypercholesterolemia, unspecified; Z79.01 Long term (current) use of anticoagulants; Z82.49 Family history of ischemic heart disease and other diseases of the circulatory system; Z98.890 Other specified postprocedural states; Z85.46 Personal history of malignant neoplasm of prostate
CPT/HCPCS: 36415; 50435; 80048; 85025; 85610; 85730; A4215; A4216; A4221; A4222; A4223 ×3; A4606; A4663; C1729 ×2; C1769 ×3; J1644; J2250; J3010; J3490; J7030; Q9967; 99156

== ENCOUNTER 2021-03-23 10:14 | Inpatient (IN) | payer OTHER, MEDICARE ==
[~2021-03-23] VITALS: Ht 167.6 cm; Wt 76.7 kg
[2021-03-23 10:17] VITALS: BP 122/83
[2021-03-23] MEDS ORDERED: ONDANSETRON 4MG INJ IVP SCH (11:00)
[2021-03-23] MEDS ORDERED: CIPR-278 PO (11:00)
[2021-03-23] MEDS ORDERED: PANT40TA54 PO (11:01)
[2021-03-23] MEDS ORDERED: PROCHLORPERAZINE EDISYLATE 10 MG/2 ML VIAL IV SCH (11:15)
[2021-03-23 11:28] LABS: BASOPHILS % (AUTO) 0.4 % (0.0-5.0); EOSINOPHILS % (AUTO) 1.9 % (0.0-8.0); HEMATOCRIT 31.2 % (42-54); MEAN CORPUSCULAR HEMOGLOBIN 30.8 pg (27.0-33.0); MEAN CORPUSCULAR HGB CONC 33.7 g/dL (32.0-36.0); MEAN CORPUSCULAR VOLUME 91.5 fL (79-99); MONOCYTES % (AUTO) 8.1 % (3.0-13.0); PLATELET COUNT (AUTO) 146 K/uL (130-400); RED BLOOD CELL COUNT(AUTO) 3.41 MIL/uL (4.50-6.20); RED CELL DISTRIBUTION WIDTH 13.2 % (11.0-15.5); WHITE BLOOD COUNT (AUTO) 9.4 K/uL (4.8-10.8)
[2021-03-23 11:43] LABS: CREATININE 3.3 mg/dL (0.5-1.5)
[2021-03-23 11:47] LABS: ALBUMIN 2.4 g/dL (3.5-5.0); BILIRUBIN,TOTAL 0.4 mg/dL (0.2-1.0); TOTAL PROTEIN, SERUM 5.9 g/dL (6.0-8.3)
[2021-03-23 12:19] VITALS: BP 145/65
[2021-03-23 13:32] LABS: APPEARANCE,URINE Turbid (CLEAR); BILIRUBIN,URINE Negative (NEGATIVE); COLOR,URINE Yellow (YELLOW); GLUCOSE, URINE (UA) Negative (NEGATIVE); KETONES,URINE Negative (NEGATIVE); LEUKOCYTE ESTERASE ,URINE Large (NEGATIVE); NITRATE,URINE Negative (NEGATIVE); OCCULT BLOOD,URINE Small (NEGATIVE); PROTEIN,URINE Trace mg/dL (NEGATIVE); UROBILINOGEN,URINE 0.2 mg/dL (0.2-1.0)
[2021-03-23 13:45] LABS: BACTERIA,URINE Few /HPF (None Seen); RBC,URINE 0-1 /HPF (0-1); WBC,URINE TNTC /HPF (0-1)
[2021-03-23 13:46] LABS: SQUAMOUS EPITHELIAL CELL,UR Rare /HPF (0-2)
[2021-03-23 14:30] VITALS: BP 116/65
[2021-03-23] MEDS ORDERED: DiphenhydrAMINE HCL 50 MG/ML VIAL IV PRN (15:00)
[2021-03-23] MEDS ORDERED: GUAIFENESIN-DM 200/20 MG 10 ML PO PRN (15:00)
[2021-03-23] MEDS ORDERED: LACTULOSE 20 GM/30 ML UDCUP PO PRN (15:00)
[2021-03-23] MEDS ORDERED: MAG/ALUM/SIMETH 30 ML UDCUP PO PRN (15:00)
[2021-03-23] MEDS ORDERED: NITROGLYCERIN 0.4 MG SL TAB SL PRN (15:00)
[2021-03-23] MEDS ORDERED: DIPHENHYDRAMINE HCL 25 MG CAPSULE PO PRN (15:00)
[2021-03-23] MEDS ORDERED: ACETAMINOPHEN 325 MG TAB PO PRN ×2 (15:00)
[2021-03-23] MEDS ORDERED: ONDANSETRON 4MG INJ IV PRN (15:00)
[2021-03-23] MEDS: NACL 0.9% 1000ML 1,000 ML IV SCH (15:59)
[2021-03-23] MEDS: CEFTRIAXONE 1G VIAL IV SCH (15:59)
[2021-03-23 18:21] VITALS: BP 115/65
[2021-03-23 21:00] VITALS: BP 151/74
[2021-03-23] MEDS ORDERED: FAMOTIDINE 20MG VIAL IV SCH (21:00)
[2021-03-24] VITALS (8 sets, daily range): BP systolic 146–165; BP diastolic 71–88
[2021-03-24] MEDS: NACL 0.9% 1000ML 1,000 ML IV SCH (04:32)
[2021-03-24] MEDS ORDERED: HYDRALAZINE HCL 10 MG TABLET PO PRN (09:55)
[2021-03-24] MEDS: LEVETIRACETAM 500 MG TABLET PO SCH ×2 (10:16→21:04)
[2021-03-24] MEDS: DEXAMETHASONE SOD PHOSPHATE 4 MG/ML 1ML VIAL IVP SCH ×3 (10:16→21:12)
[2021-03-24] MEDS: PANTOPRAZOLE 40 MG TAB DR PO SCH (10:16)
[2021-03-24] MEDS: FERROUS SULFATE 325 MG TABLET.DR PO SCH (10:16)
[2021-03-24] MEDS: Vitamin B Complex/Vit C/Folic Acid PO SCH (10:16)
[2021-03-24] MEDS: HYDRALAZINE HCL 10 MG TABLET PO SCH ×2 (10:17→21:04)
[2021-03-24] MEDS ORDERED: MORPHINE 2 MG SYG IVP PRN (11:30)
[2021-03-24] MEDS: METOCLOPRAMIDE 5 MG TABLET PO SCH ×3 (13:01→21:04)
[2021-03-24] MEDS: CEFTRIAXONE 1G VIAL IV SCH (15:50)
[2021-03-24] MEDS ORDERED: CALCITRIOL 0.25 MCG CAP PO SCH (21:00)
[2021-03-24] MEDS: MONTELUKAST SODIUM 10 MG TAB PO SCH (21:04)
[2021-03-25 04:04] VITALS: BP 154/85
[2021-03-25 05:15] LABS: HEMATOCRIT 32.9 % (42-54); MEAN CORPUSCULAR HEMOGLOBIN 30.7 pg (27.0-33.0); MEAN CORPUSCULAR VOLUME 87.7 fL (79-99); RED BLOOD CELL COUNT(AUTO) 3.75 MIL/uL (4.50-6.20); WHITE BLOOD COUNT (AUTO) 8.8 K/uL (4.8-10.8)
[2021-03-25 05:53] LABS: CREATININE 3.2 mg/dL (0.5-1.5); POTASSIUM 4.5 mmol/L (3.5-5.1)
[2021-03-25 08:15] VITALS: BP 173/80
[2021-03-25] MEDS: DEXAMETHASONE SOD PHOSPHATE 4 MG/ML 1ML VIAL IVP SCH ×4 (08:59→21:52)
[2021-03-25] MEDS ORDERED: FAMOTIDINE 20MG VIAL IV SCH (09:00)
[2021-03-25] MEDS: Vitamin B Complex/Vit C/Folic Acid PO SCH (09:59)
[2021-03-25] MEDS: FERROUS SULFATE 325 MG TABLET.DR PO SCH (09:59)
[2021-03-25] MEDS: LEVETIRACETAM 500 MG TABLET PO SCH ×2 (10:00→21:52)
[2021-03-25] MEDS: HYDRALAZINE HCL 10 MG TABLET PO SCH ×2 (10:00→21:52)
[2021-03-25] MEDS: METOCLOPRAMIDE 5 MG TABLET PO SCH ×4 (10:12→21:51)
[2021-03-25] MEDS: PANTOPRAZOLE 40 MG TAB DR PO SCH (10:12)
[2021-03-25 11:22] VITALS: BP 160/78
[2021-03-25] MEDS: CEFTRIAXONE 1G VIAL IV SCH (14:59)
[2021-03-25 16:06] VITALS: BP 157/75
[2021-03-25 19:46] VITALS: BP 139/61
[2021-03-25] MEDS: MONTELUKAST SODIUM 10 MG TAB PO SCH (21:51)
[2021-03-25 23:51] VITALS: BP 146/58
== END 2021-03-26 03:25 | disposition short-term general hospital (02) | DRG 56 ==
LOC: EDH 10:14 → EDHIP 14:46 → OBSVTOIN 14:46 → 3AH 03-24 00:08
PROVIDERS: ADMIT Internal Medicine; ATTEND Internal Medicine
DX: G91.9 Hydrocephalus, unspecified (principal); G93.6 Cerebral edema; G72.0 Drug-induced myopathy; N13.8 Other obstructive and reflux uropathy; N18.4 Chronic kidney disease, stage 4 (severe); N25.81 Secondary hyperparathyroidism of renal origin; N30.40 Irradiation cystitis without hematuria; Z66 Do not resuscitate; G93.9 Disorder of brain, unspecified; C61 Malignant neoplasm of prostate; D63.8 Anemia in other chronic diseases classified elsewhere; E11.22 Type 2 diabetes mellitus with diabetic chronic kidney disease; E11.43 Type 2 diabetes mellitus with diabetic autonomic (poly)neuropathy; E11.65 Type 2 diabetes mellitus with hyperglycemia; E78.2 Mixed hyperlipidemia; E11.42 Type 2 diabetes mellitus with diabetic polyneuropathy; H81.13 Benign paroxysmal vertigo, bilateral; I12.9 Hypertensive chronic kidney disease with stage 1 through stage 4 chronic kidney disease, or unspecified chronic kidney disease; J30.9 Allergic rhinitis, unspecified; J84.10 Pulmonary fibrosis, unspecified; K21.9 Gastro-esophageal reflux disease without esophagitis; K31.84 Gastroparesis; K64.9 Unspecified hemorrhoids; K80.20 Calculus of gallbladder without cholecystitis without obstruction; M19.90 Unspecified osteoarthritis, unspecified site; N31.9 Neuromuscular dysfunction of bladder, unspecified; N32.89 Other specified disorders of bladder; N40.1 Benign prostatic hyperplasia with lower urinary tract symptoms; R33.8 Other retention of urine; T38.0X5A Adverse effect of glucocorticoids and synthetic analogues, initial encounter; T46.6X5A Adverse effect of antihyperlipidemic and antiarteriosclerotic drugs, initial encounter; Z20.822 Contact with and (suspected) exposure to COVID-19; R91.1 Solitary pulmonary nodule; G93.2 Benign intracranial hypertension; M50.30 Other cervical disc degeneration, unspecified cervical region; M51.36 Other intervertebral disc degeneration, lumbar region; Y84.2 Radiological procedure and radiotherapy as the cause of abnormal reaction of the patient, or of later complication, without mention of misadventure at the time of the procedure; Z80.42 Family history of malignant neoplasm of prostate; Z82.0 Family history of epilepsy and other diseases of the nervous system; Z82.3 Family history of stroke; Z82.49 Family history of ischemic heart disease and other diseases of the circulatory system; Z82.5 Family history of asthma and other chronic lower respiratory diseases; Z83.3 Family history of diabetes mellitus; Z87.440 Personal history of urinary (tract) infections; Z92.3 Personal history of irradiation; Y92.89 Other specified places as the place of occurrence of the external cause; Z79.84 Long term (current) use of oral hypoglycemic drugs
CPT/HCPCS: 36415; 70450; 70551; 74176; 80048; 80053; 81001; 82150; 83690; 84484; 85025; 85027; 87077; 87088; 87186; 87635; 93005; G0378; J0696; J0780; J1100; J2405; J3490; J7030